=== PATIENT | male | born 1960 | race Caucasian/White ===

== ENCOUNTER 2017-04-01 03:30 | Inpatient (IN) | payer MEDICAID ==
[~2017-04-01] VITALS: Ht 177.8 cm; Wt 53.5 kg
[~2017-04-01 03:30] MED LIST: ADVAI100I PO; ALBU0.086 INH; LEVE750T8 PO; SPIRCAP INH; VENTAER INH; [UNRECOGNIZED DRUG - OTHER]
[2017-04-01 05:59] VITALS: BP 132/63; PULSE 68; RESP 18; TEMP 97.9
[2017-04-01] MEDS ORDERED: MAGNESIUM HYDROXIDE SUSP 30 ML CUP PO PRN (06:00)
[2017-04-01] MEDS ORDERED: LORazepam 2 MG/ML VIAL IM PRN (06:00)
[2017-04-01] MEDS ORDERED: ACETAMINOPHEN 325 MG TAB PO PRN (06:00)
[2017-04-01] MEDS ORDERED: ALUMINUM/MAGNESIUM/SIMETH 30 ML CUP PO PRN (06:00)
[2017-04-01] MEDS: LORazepam 1 MG TAB PO PRN ×3 (06:16→17:16)
[2017-04-01 06:30] VITALS: BP 132/63; PULSE 68; RESP 17; TEMP 97.9; O2SAT 98
[2017-04-01] MEDS: NICOTINE 21 MG/24 HR PATCH T-DERMAL SCH (09:00)
--- NOTE | 2017-04-01 13:59 | PD.CONS ---
HPI Service [facility] ([place], [place])ists Consult Requested By Dr. Mcrae Reason for Consult Medical management Primary Care Physician Non-Staff Diagnoses: History of Present Illness The patient is a 57-year-old male with a past medical history of epilepsy who is presenting to the hospital as a transfer for suicidal ideation. The patient said that he was taken to an outside hospital after having a seizure. He was about to be discharged and stated that he wanted to remain in the hospital for further treatment. He was told that was not an option so he said that he wanted to hurt himself. He was transferred to the psychiatry unit here at that point. The patient says that he said the wrong thing and is not suicidal. He said that he takes Keppra daily. His last seizure was about 6 months ago. He says generally his body stiffens up when he has a seizure. He says bright lights seem to trigger the seizures. He also complains of COPD. He says he has yellow mucus production. He does endorse chills. He is hoping to be restarted on his home COPD medications. Review of Systems Except as stated in HPI: all other systems reviewed are Neg Past Family Social History Allergies: Coded Allergies: No Known Allergies (Unverified , 04/11/16) Past Medical History Epilepsy COPD Chronic right knee pain Past Surgical History Right knee surgery Active Ordered Medications Current Medications Medications (Trade) Dose Ordered Sig/Christiana Route Start Time Stop Time Status Last Admin (Ativan) 1 mg Q6H PRN PO 04/01/17 06:00 04/01/17 11:42 (Ativan Inj) 1 mg Q6H PRN IM 04/01/17 06:00 (Tylenol) 650 mg Q4H PRN PO 04/01/17 06:00 (Milk Of Magnesia Liq) 30 ml DAILY PRN PO 04/01/17 06:00 (Mag-Al Plus Susp Liq) 30 ml Q6H PRN PO 04/01/17 06:00 (Habitrol 21 Mg Patch.24 Hr) 1 patch DAILY T-DERMAL 04/01/17 09:00 04/01/17 09:00 Miscellaneous Information 1 HS T-DERMAL 04/01/17 21:00 (Keppra) 750 mg Q12HR PO 04/01/17 14:00 UNV (Symbicort 160-4.5 Inh) 1 puff Q12HR INH 04/01/17 14:00 UNV (Duoneb Neb) 1 ampule Q2HR NEB PRN NEB 04/01/17 14:00 UNV (Deltasone) 20 mg DAILY PO 04/01/17 14:00 04/03/17 09:01 UNV Family History The pt denies pertinent family history Social History The pt smokes 1/2 to 1 pack daily. He denies alcohol or drugs. He is homeless. Physical Exam Vital Signs Vital Signs Date Time Temp Pulse Resp B/P (MAP) Pulse Ox O2 Delivery O2 Flow Rate FiO2 04/01/17 06:30 97.9 68 17 132/63 (86) 98 04/01/17 05:59 97.9 68 18 132/63 (86) Physical Exam GENERAL: This is a well-nourished, well-developed patient, in no apparent distress. SKIN: No rashes, ecchymoses or lesions. Cool and dry. HEAD: Atraumatic. Normocephalic. No temporal or scalp tenderness. EYES: Pupils equal round and reactive. Extraocular motions intact. No scleral icterus. No injection or drainage. ENT: Nose without bleeding, purulent drainage or septal hematoma. Throat without erythema, tonsillar hypertrophy or exudate. Uvula midline. Airway patent. NECK: Trachea midline. No JVD or lymphadenopathy. Supple, nontender, no meningeal signs. CARDIOVASCULAR: Regular rate and rhythm without murmurs, gallops, or rubs. RESPIRATORY: Decreased air movement. GASTROINTESTINAL: Abdomen soft, non-tender, nondistended. No hepato-splenomegaly , or palpable masses. No guarding. MUSCULOSKELETAL: Extremities without clubbing, cyanosis, or edema. No joint tenderness, effusion, or edema noted. NEUROLOGICAL: Awake and alert. Cranial nerves II through XII intact. Motor and sensory grossly within normal limits. Five out of 5 muscle strength in all muscle groups. Normal speech. PSYCH: Mood and affect appropriate. Laboratory Laboratory Tests Test 04/01/17 10:59 Ethyl Alcohol Level LESS THAN 3 Assessment and Plan Assessment and Plan Suicidal ideation The pt said that he accidentally said the wrong thing. He said he is not suicidal. - management per psychiatry. Epilepsy The pt is on Keppra daily as an outpt, though he should be getting 750 mg BID. - continue Keppra. - seizure precautions. COPD Pt endorses yellow mucous production. Poor air entry. - CXR pending. - continue Symbicort (on Advair at home). - incentive spirometry. - oxygen and nebs as needed. - prednisone. Chronic right knee pain He says he is on Percocet as an outpt. - ibuprofen as needed. PPx: Ambulation Discussed Condition With Pt, nurse Kavon Beck DO Apr 01, 2017 13:59
[2017-04-01] MEDS ORDERED: RESP: ALBUTEROL 2.5 MG/IPRATROPIUM 0.5 MG NEB (PRN) NEB (14:00)
[2017-04-01] MEDS: predniSONE 20 MG TAB PO SCH (15:00)
[2017-04-01] MEDS: levETIRAcetam 250 MG TAB PO SCH ×2 (15:00→21:29)
[2017-04-01] MEDS: BUDESONIDE-FORMOTEROL 160/4.5 MCG INHALER INH SCH ×2 (15:00→21:29)
[2017-04-01 16:18] VITALS: BP 120/74; PULSE 83; RESP 18; TEMP 98.7; O2SAT 96
--- NOTE | 2017-04-01 17:12 | HHI.HP ---
Provisional Diagnosis Admission Date Apr 01, 2017 at 03:30 [place]. Adjustment disorder with mixed disturbance of emotion and conduct. Certification of Person's Competence To Provide Express and Informed Consent I have personally examined Musa Valero , a person being served at [facility] on, Apr 01, 2017 17:10. Express and informed consent means consent voluntarily given in writing, by a competent person, after sufficient explanation and disclosure of the subject matter involved to enable the person to make a knowing and willful decision without any element of force, fraud, deceit, duress, or other form of constraint or coercion. This person is 18 years of age or older, is not now known to be incompetent to consent to treatment with a guardian advocate, and does not have a health care surrogate or proxy currently making medical treatment decisions. I have found this person to be one of the following: [x] Competent to provide express and informed consent, as defined above, for voluntary admission to this facility and is competent to provide express and informed consent for treatment. He/she has the consistent capacity to make well reasoned, willful, and knowing decisions concerning his or her medical or mental health treatment. The person fully and consistently understands the purpose of the admission for examination/placement and is fully capable of personally exercising all rights assured under [place] Incompetent to provide express and informed consent to voluntary admission, and this is incompetent to provide express and informed consent to treatment. The person must be transferred to involuntary status and a petition for a guardian advocate filed with the Circuit Court. [] Refusing to provide express and informed consent to voluntary admission but is competent to provide express and informed consent for treatment. The person must be discharged or transferred to involuntary status. Form shall be completed within 24 hours of a person's arrival at the receiving facility and filed in the clinical record of each person: 1. Admitted on a voluntary basis 2. Permitted to provide express and informed consent to his/her own treatment 3. Allowed to transfer from involuntary to voluntary status 4. Prior to permitting a person to consent to his or her own treatment after having been previously found incompetent to consent to treatment. History of Present Illness Capacity: Has Capacity HPI Patient admits to this physician that he told outside emergency department physician he was suicidal so they would not kick him out. He denies being suicidal at this time and is in fact chuckling and laughing. Patient requesting his Percocet and his Xanax. Review of Systems Except as stated in HPI: all other systems reviewed are Neg Musculoskeletal: COMPLAINS OF: Joint pain, Back pain, Neck pain Past Psych History Psychological trauma history Denied Violence risk - others (6 mos) Minimal Violence risk - self (6 mos) Minimal Substance Abuse History Drugs/Alcohol past 12 months Significant use of Percocet and Xanax. Past Family Social History Coded Allergies: No Known Allergies (Unverified , 04/11/16) Active Scripts Albuterol Sulfate (Ventolin Hfa) 18 Gm Aero, 2 PUFF INH Q4-6H Y for wheezing, # 3 BOX * SHAKE WELL BEFORE USE * Prov:Grady Carr MD 03/23/16 Albuterol Sulfate (Proventil Ud 0.083% (2.5 Mg/3 Ml)) 2.5 Mg/3 Ml Inha, 2.5 MG INH Q4HR Y for WHEEZING, #25 BOX Prov:Singh Bauer MD 02/24/16 Reported Medications Levetiracetam (Keppra) 750 Mg Tab, 750 MG PO Q12, TAB 04/11/16 [antise] No Conflict Check 02/24/16 Tiotropium [place] Monohydrate (Spiriva Handihaler) 18 Mcg Cap, 1 PUFF INH DAILY , #5 CAP DO NOT SWALLOW CAPSULES 02/16/16 Fluticasone/Salmeterol 100 mcg/50 mcg (Advair Diskus 100/50) Fluticasone/ Salmeterol 100/50 Inh, 1 PUFF PO BID, INHALER 02/16/16 Current Medications Medications (Trade) Dose Ordered Sig/Christiana Route Start Time Stop Time Status Last Admin (Ativan) 1 mg Q6H PRN PO 04/01/17 06:00 04/01/17 11:42 (Ativan Inj) 1 mg Q6H PRN IM 04/01/17 06:00 (Tylenol) 650 mg Q4H PRN PO 04/01/17 06:00 (Milk Of Magnesia Liq) 30 ml DAILY PRN PO 04/01/17 06:00 (Mag-Al Plus Susp Liq) 30 ml Q6H PRN PO 04/01/17 06:00 (Habitrol 21 Mg Patch.24 Hr) 1 patch DAILY T-DERMAL 04/01/17 09:00 04/01/17 09:00 Miscellaneous Information 1 HS T-DERMAL 04/01/17 21:00 (Keppra) 750 mg Q12HR PO 04/01/17 15:00 (Symbicort 160-4.5 Inh) 1 puff Q12HR INH 04/01/17 15:00 (Duoneb Neb) 1 ampule Q2HR NEB PRN NEB 04/01/17 14:00 (Deltasone) 20 mg DAILY PO 04/01/17 15:00 04/03/17 09:01 Family History Denied Social History Unemployed. Has disability. Patient's Strengths (min. 2) Verbal and has access to healthcare. Physical Exam GENERAL: SKIN: Warm and dry. HEAD: Normocephalic. EYES: No scleral icterus. No injection or drainage. NECK: Supple, trachea midline. No JVD or lymphadenopathy. CARDIOVASCULAR: Regular rate and rhythm without murmurs, gallops, or rubs. RESPIRATORY: Breath sounds equal bilaterally. No accessory muscle use. GASTROINTESTINAL: Abdomen soft, non-tender, nondistended. MUSCULOSKELETAL: No cyanosis, or edema. BACK: Nontender without obvious deformity. No CVA tenderness. Vital Signs Vital Signs Date Time Temp Pulse Resp B/P (MAP) Pulse Ox O2 Delivery O2 Flow Rate FiO2 04/01/17 16:18 98.7 83 18 120/74 (89) 96 Lab Results Test 04/01/17 10:59 Ethyl Alcohol Level LESS THAN 3 MG/DL Mental Status Examination Speech: Unremarkable Orientation: x3 Memory: Unremarkable Thought Process: Organized, Goal Directed Thought Content: Unremarkable Hallucination Type: None Attention and Concentration: Good Suicidal Ideation: No Previous Suicide Attempts: No Homicidal Ideation: No Previous Homicide Attempts: No Insight: Fair Judgment: WNL Affect: Good Mood: Appropriate Motor Activity: Normal gait Assessment & Plan Problem List: (1) Malingering ICD Codes: Z76.5 - Malingerer [conscious simulation] (2) Adjustment disorder with mixed disturbance of emotions and conduct ICD Codes: F43.25 - Adjustment disorder with mixed disturbance of emotions and conduct Assessment & Plan Estimated LOS: days will place patient on Xanax so he does not withdraw. Will ask physical medicine to determine his pain meds. John Mcrae MD Apr 01, 2017 17:12
--- NOTE | 2017-04-01 17:21 | RADRPT ---
EXAM DATE/TIME: 04/01/2017 16:47 [facility] COMPARISON: CHEST SINGLE AP, March 23, 2016, 21:21. INDICATIONS : Short of breath. MEDICAL HISTORY : Chronic obstructive pulmonary disease. SURGICAL HISTORY : None. ENCOUNTER: Subsequent ACUITY: 1 month PAIN SCORE: 0/10 LOCATION: Bilateral chest FINDINGS: Emphysematous changes are noted bilaterally. The heart and mediastinal structures are normal. The p ulmonary vascular pattern is normal. The lungs are clear. CONCLUSION: 1. Emphysematous changes. 2. No acute focal pulmonary infiltrate or pulmonary vascular congestion. Beck Mathis MD on April 01, 2017 at 16:56 Board Certified Radiologist. This report was verified electronically.
[2017-04-01] MEDS ORDERED: REMOVE OLD NICOTINE PATCH T-DERMAL SCH (21:00)
[2017-04-01] MEDS: ALPRAZolam 1 MG TAB PO SCH (21:29)
[2017-04-02] MEDS: LORazepam 1 MG TAB PO PRN ×2 (02:13→11:52)
[2017-04-02 06:19] VITALS: BP 99/55; PULSE 82; RESP 18; TEMP 98.3; O2SAT 98
[2017-04-02 08:31] LABS: HEMATOCRIT 43.2 % (39.0-51.0); MEAN CORPUSCULAR HEMOGLOBIN 31.7 PG (27.0-34.0); PLATELET COUNT 288 TH/MM3 (150-450); WHITE BLOOD COUNT 12.8 TH/MM3 (4.0-11.0)
[2017-04-02] MEDS: ALPRAZolam 1 MG TAB PO SCH (08:35)
[2017-04-02] MEDS: levETIRAcetam 250 MG TAB PO SCH (08:35)
[2017-04-02] MEDS: predniSONE 20 MG TAB PO SCH (08:35)
[2017-04-02] MEDS: NICOTINE 21 MG/24 HR PATCH T-DERMAL SCH (08:36)
[2017-04-02] MEDS: BUDESONIDE-FORMOTEROL 160/4.5 MCG INHALER INH SCH (08:36)
[2017-04-02 08:37] LABS: BICARBONATE 29.2 MEQ/L (21.0-32.0); POTASSIUM 4.1 MEQ/L (3.5-5.1)
--- NOTE | 2017-04-02 11:46 | HHI.DS ---
Psychiatry Discharge Summary Inpatient Psychiatric care?: Yes Advance Directive: No Reason Not Provided: Due to Patient Condition Mental Health AdvanceDirective: No Health Care Proxy: No Admission Admission Date Apr 01, 2017 at 03:30 Admission Diagnosis: (1) Adjustment disorder with mixed disturbance of emotions and conduct ICD Code: F43.25 - Adjustment disorder with mixed disturbance of emotions and conduct Brief History Patient admits to this physician that he told outside emergency department physician he was suicidal so they would not kick him out. He denies being suicidal at this time and is in fact chuckling and laughing. Patient requesting his Percocet and his Xanax. Tobacco Use In Past 30 Days: 5 or More Cigarettes/Day Alcohol Use: Never Hospital Course Patient was admitted to a locked, inpatient psychiatric unit. General medical consultation was obtained. Appropriate precautions were in place throughout patient's hospital stay. Patient was seen and examined on the unit by psychiatry and also visited by counselor. There was no evidence of any suicidality or homicidality on the unit. Patient remained in good behavioral control. Charting indicates that the patient is sleeping and eating well. On the day of discharge: Patient seen and examined with nurse. Chart reviewed. Case discussed with nursing staff. On my examination today, the patient says that his interaction with the outside hospital ED provider was more of a misunderstanding. He continues to deny any suicidal or homicidal ideation, intent or plan on direct questioning and contracts for safety. No depressive or hypomanic/manic symptoms elicited. No psychotic symptoms. Patient denies a history of psychiatric illness besides anxiety for which he takes benzodiazepines. He denies a history of suicide attempts. He denies a family history of serious mental illness or suicide. He was with a friend and denies access to guns or firearms. Somewhat medication seeking for benzodiazepines on discharge, but I have reviewed the patient's E-FORCSE report, and I note that the patient was given a 30-day supply of his Klonopin by Dr. House on . No physical complaints. Appears to be breathing easily. Weighing the acute, chronic, and protective factors and based on the available evidence, I supervisor rod placing to a reasonable degree of medical certainty that the patient is at low imminent risk of harm to self or others from mental illness as defined under the [place] act and his level of function is adequate for outpatient care. Patient has maximized benefit from this inpatient psychiatric hospital stay and is to be discharged today once cleared by the hospitalist with psychiatric follow-up as arranged by counselor. Patient is also to follow-up with primary care. I have counseled the patient regarding warning signs for need to return to the psychiatric emergency room as part of a general safety plan. Results Blood Pressure 99 / 55 Vital Signs Date Time Temp Pulse Resp B/P (MAP) Pulse Ox O2 Delivery O2 Flow Rate FiO2 04/02/17 06:19 98.3 82 18 99/55 (70) 98 Laboratory Tests Test 04/01/17 10:59 04/02/17 07:03 White Blood Count 12.8 TH/MM3 (4.0-11.0) Blood Urea Nitrogen 21 MG/DL (7-18) Calcium Level 8.3 MG/DL (8.5-10.1) Summary of Procedures None done Imaging Last Impressions Chest X-Ray 04/01/17 0000 Signed Impressions: Service Date/Time: Saturday, April 01, 2017 16:47 - CONCLUSION: 1. Emphysematous changes. 2. No acute focal pulmonary infiltrate or pulmonary vascular congestion. Beck Mathis MD Pending results at discharge: No Medications # of Antipsychotic meds at D/C: 0 Approp Antipsych med options 1 - Minimum of three failed multiple trials of monotherapy. 2 - Documented plan to taper to monotherapy due to previous use of multiple meds OR cross-taper in progress at D/C. 3 - Documentation of augmentation of Clozapine. 4 - Justification other than those listed in allowable values 1-3, document here : Discharge Discharge Date: Apr 02, 2017 Discharge Diagnosis: (1) Adjustment disorder with mixed disturbance of emotions and conduct Diagnosis: Principal (resolved) ICD Code: F43.25 - Adjustment disorder with mixed disturbance of emotions and conduct Status: Acute Mental Status Exam at Disch Patient is casually dressed. Patient is fairly well groomed and maintaining basic hygiene. Patient is awake and alert and oriented person and hospital at least. No evidence of delirium. No motor abnormalities appreciated. No signs of withdrawal noted. Speech is within normal limits for rate, tone, volume. Language and fund of knowledge average. Focus and concentration intact. Memory grossly intact on clinical exam. Mood is fair. Affect is full and reactive. Thought process linear. No delusions elicited. Denies audiovisual hallucinations and does not appear internally stimulated. Denies suicidal or homicidal ideation, intent, or plan and contracts for safety. Insight and judgment seem fair at best. Pt Condition on Discharge: Stable Discharge Disposition: Discharge Home Discharge Instructions Diet Instructions: As Tolerated, No Restrictions Activities you can perform: Weight Bearing as [place] Scheduled Appointment: as per counselor's notes New Orders: CBC WITH DIFF - 1 Week New Medications: Prednisone (Prednisone) 20 Mg Tab 20 MG PO ONCE for Cough, #1 TAB 0 Refills Prednisone (Prednisone) 20 Mg Tab 20 MG PO DAILY for Cough for 1 Day, #1 TAB Continued Medications: Albuterol Sulfate (Ventolin Hfa) 18 Gm Aero 2 PUFF INH Q4-6H PRN for wheezing, #3 BOX * SHAKE WELL BEFORE USE * Fluticasone/Salmeterol 100 mcg/50 mcg (Advair Diskus 100/50) Fluticasone/ Salmeterol 100/50 Inh 1 PUFF PO BID, INHALER Levetiracetam (Keppra) 750 Mg Tab 750 MG PO Q12, TAB Tiotropium [place] Monohydrate (Spiriva Handihaler) 18 Mcg Cap 1 PUFF INH DAILY, #5 CAP DO NOT SWALLOW CAPSULES Discontinued Medications: Albuterol Sulfate (Proventil Ud 0.083% (2.5 Mg/3 Ml)) 2.5 Mg/3 Ml Inha 2.5 MG INH Q4HR PRN for WHEEZING, #25 BOX [antise] () Discharge Time <= 30 minutes Discharge/Advance Care Plan Health Problems: (1) Malingering (2) Adjustment disorder with mixed disturbance of emotions and conduct Goals to promote your health * To prevent worsening of your condition and complications * To maintain your health at the optimal level Directions to meet your goals Take your medications as prescribed Follow your dietary instruction Follow activity as directed Keep your appointments as scheduled Take your immunizations and boosters as scheduled If your symptoms worsen call your PCP, if no PCP go to Urgent Care Center or Emergency Room For 26/02 questions related to your inpatient stay or results of tests pending at discharge, please contact Dr. Juan Carlos Peña at Smoking is Dangerous to Your Health. Avoid second hand smoking Juan Carlos Peña MD Apr 02, 2017 11:46
[2017-04-02] MEDS ORDERED: PRED20 PO ×2 (12:34→12:35)
== END 2017-04-02 13:30 | disposition home or self-care (01) | DRG 882 ==
LOC: H260 03:30
PROVIDERS: ADMIT Psychiatry & Neurology Psychiatry; ATTEND Psychiatry & Neurology Psychiatry
DX: F43.25 Adjustment disorder with mixed disturbance of emotions and conduct (principal); G40.909 Epilepsy, unspecified, not intractable, without status epilepticus; J44.9 Chronic obstructive pulmonary disease, unspecified; G89.29 Other chronic pain; M25.561 Pain in right knee; F17.210 Nicotine dependence, cigarettes, uncomplicated; Z59.0 Homelessness
CPT/HCPCS: 71010; 80048; 80307; 83735; 85027; 94150; J7512

== ENCOUNTER 2017-10-08 16:28 | Inpatient (IN) | payer MEDICAID ==
[~2017-10-08] VITALS: Ht 170.2 cm; Wt 54.9 kg
[~2017-10-08 16:28] MED LIST changes: -ALBU0.086 INH; +PRED20 PO; -[UNRECOGNIZED DRUG - OTHER]
[2017-10-08 16:46] VITALS: BP 140/77; PULSE 120; RESP 26; TEMP 99.1; O2SAT 92
[2017-10-08 17:07] VITALS: BP 135/72; PULSE 115; PULSE 117; RESP 30; O2SAT 91
[2017-10-08] MEDS ORDERED: VENTAER INH (17:14)
[2017-10-08] MEDS ORDERED: KLON2TAB PO (17:14)
[2017-10-08] MEDS ORDERED: SPIRCAP INH (17:14)
[2017-10-08] MEDS ORDERED: PERC10TA27 PO (17:14)
[2017-10-08] MEDS ORDERED: ADVA250A INH (17:14)
[2017-10-08] MEDS ORDERED: methylPREDNISolone SOD SUCC 125 MG/2 ML VIAL IV PUSH ONE (17:15)
[2017-10-08] MEDS ORDERED: SODIUM CHLORIDE 0.9% FLUSH 10 ML FLUSH IVF PRN (17:15)
[2017-10-08] MEDS: RESP: ALBUTEROL 2.5 MG/IPRATROPIUM 0.5 MG NEB (SCH) INH ×3 (17:17→17:45)
--- NOTE | 2017-10-08 17:56 | RADRPT ---
EXAM DATE/TIME: 10/08/2017 17:36 [facility] COMPARISON: CHEST SINGLE AP, April 01, 2017, 16:47. INDICATIONS : Short of breath. MEDICAL HISTORY : Chronic obstructive pulmonary disease. SURGICAL HISTORY : None. ENCOUNTER: Initial ACUITY: 1 day PAIN SCORE: 0/10 LOCATION: Bilateral chest FINDINGS: A single view of the chest demonstrates the lungs to be symmetrically aerated without evidence of mas s, infiltrate or effusion. The cardiomediastinal contours are unremarkable. Osseous structures are intact. CONCLUSION: No acute disease. Peterson Denis Jr., MD on October 08, 2017 at 17:55 Board Certified Radiologist. This report was verified electronically.
[2017-10-08 18:04] VITALS: BP 128/71; PULSE 121; RESP 24; O2SAT 95
[2017-10-08 19:15] LABS: AUTOMATED NEUTROPHIL # 11.9 TH/MM3 (1.8-7.7); BASOPHIL % 0.2 % (0.0-2.0); EOSINOPHIL % 0.1 % (0.0-4.0); HEMATOCRIT 36.5 % (39.0-51.0); HEMOGLOBIN 12.2 GM/DL (13.0-17.0); LYMPH % 11.7 % (9.0-44.0); LYMPHOCYTE # 1.9 TH/MM3 (1.0-4.8); MEAN CELL VOLUME 92.8 FL (80.0-100.0); MEAN CORPUSCULAR HGB CONC 33.5 % (32.0-36.0); MEAN PLATELET VOLUME 8.6 FL (7.0-11.0); MONO % 13.2 % (0.0-8.0); MONOCYTE # 2.1 TH/MM3 (0-0.9); NEUT % 74.8 % (16.0-70.0); PLATELET COUNT 358 TH/MM3 (150-450); RED BLOOD COUNT 3.94 MIL/MM3 (4.50-5.90); WHITE BLOOD COUNT 15.9 TH/MM3 (4.0-11.0)
[2017-10-08 19:26] LABS: PROTHROMBIN TIME - PATIENT 10.3 SEC (9.8-11.6)
[2017-10-08 19:56] LABS: ALBUMIN 3.4 GM/DL (3.4-5.0); AST (GOT) 65 U/L (15-37); BICARBONATE 32.4 MEQ/L (21.0-32.0); BLOOD UREA NITROGEN 27 MG/DL (7-18); CALCIUM 8.7 MG/DL (8.5-10.1); CHLORIDE 101 MEQ/L (98-107); CREATININE 1.12 MG/DL (0.60-1.30); GLOMERULAR FILTRATION RATE 68 ML/MIN (>89); GLUCOSE,RANDOM 108 MG/DL (74-106); MAGNESIUM 1.9 MG/DL (1.5-2.5); SODIUM (NA) 140 MEQ/L (136-145)
[2017-10-08 19:58] LABS: ALT (GPT) 134 U/L (12-78)
[2017-10-08 20:01] LABS: ALKALINE PHOSPHATASE 98 U/L (45-117); TOTAL BILIRUBIN ADULT 0.4 MG/DL (0.2-1.0); TOTAL PROTEIN 7.8 GM/DL (6.4-8.2); TROPONIN I 0.18 NG/ML (0.02-0.05)
[2017-10-08] MEDS ORDERED: ASPIRIN 81 MG CHEW TAB CHEW ONE (20:15)
[2017-10-08] MEDS ORDERED: HEPARIN SODIUM - IV 10,000 UNITS/10 ML VIAL IV ONE (20:15)
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
[2017-10-08] MEDS ORDERED: IOHEXOL 350 MG/ML 10 ML VIAL (for RAD DIAG) IVCONTRAST ONE (20:42)
[2017-10-08] MEDS ORDERED: RESP: ALBUTEROL 2.5 MG/3 ML NEB (PRN) INH (20:45)
[2017-10-08] MEDS: HEPARIN SODIUM - SQ 10,000 UNITS/ML VIAL SQ SCH (20:45)
[2017-10-08] MEDS ORDERED: SODIUM CHLORIDE 0.9% FLUSH 10 ML FLUSH IV FLUSH PRN (20:45)
[2017-10-08] MEDS ORDERED: HEPARIN-D5W 25,000 U/250 ML 250 ML IV PRN (21:00)
[2017-10-08] MEDS: SODIUM CHLORIDE 0.9% FLUSH 10 ML FLUSH IV FLUSH SCH (21:00)
--- NOTE | 2017-10-08 21:17 | RADRPT ---
EXAM DATE/TIME: 10/08/2017 20:37 [facility] COMPARISON: No previous studies available for comparison. INDICATIONS : Trauma; fall. RADIATION DOSE: 49.27 CTDIvol (mGy) MEDICAL HISTORY : Seizures. Chronic obstructive pulmonary disease. Hepatitis C. SURGICAL HISTORY : None. ENCOUNTER: Initial ACUITY: 1 day PAIN SCALE: 0/10 LOCATION: cranial TECHNIQUE: Multiple contiguous axial images were obtained of the head. Using automated exposure control and adj ustment of the mA and/or kV according to patient size, radiation dose was kept as low as reasonably a chievable to obtain optimal diagnostic quality images. DICOM format image data is available electro nically for review and comparison. FINDINGS: Examination was performed using tabletop technique. There is some mild motion degradation on several of the low convexity images. CEREBRUM: The ventricles are normal for age. No evidence of midline shift, mass lesion, hemorrhage or acute in farction. No extra-axial fluid collections are seen. POSTERIOR FOSSA: The cerebellum and brainstem are intact. The 4th ventricle is midline. The cerebellopontine angle i s unremarkable. EXTRACRANIAL: The visualized portion of the orbits is intact. SKULL: The calvaria is intact. No evidence of skull fracture. CONCLUSION: 1. No acute findings in the brain. Peterson Mckeon MD on October 08, 2017 at 21:14 Board Certified Radiologist. This report was verified electronically.
--- NOTE | 2017-10-08 21:20 | RADRPT ---
EXAM DATE/TIME: 10/08/2017 20:39 [facility] COMPARISON: CHEST SINGLE AP, October 08, 2017, 17:36. INDICATIONS : Shortness of breath; rule out pulmonary embolus. IV CONTRAST: 75 cc Omnipaque 350 (iohexol) IV RADIATION DOSE: 8.61 CTDIvol (mGy) MEDICAL HISTORY : Seizures. Chronic obstructive pulmonary disease. Hepatitis C. SURGICAL HISTORY : None. ENCOUNTER: Initial ACUITY: 1 day PAIN SCALE: 0/10 LOCATION: chest TECHNIQUE: Volumetric scanning of the chest was performed using a pulmonary embolism protocol MIP images were re constructed. Using automated exposure control and adjustment of the mA and/or kV according to patien t size, radiation dose was kept as low as reasonably achievable to obtain optimal diagnostic quality images. DICOM format image data is available electronically for review and comparison. Follow-up recommendations for detected pulmonary nodules are based at a minimum on nodule size and pa tient risk factors according to Fleischner Society Guidelines. FINDINGS: PULMONARY ARTERIES: No filling defects are seen in the pulmonary arteries through the segmental level. LUNGS: Severe centrilobular emphysema in the upper and lower lobes. There is chronic scarring in the mdm developer ior left apex and patchy areas of consolidation or atelectasis in the costophrenic angles bilaterally . PLEURAE: There is no pleural thickening or pleural effusion. MEDIASTINUM: There is good visualization of the great vessels of the middle mediastinum. No evidence of mediastin al or hilar adenopathy/mass. CONCLUSION: 1. Negative for pulmonary embolism. 2. Chronic lung disease with severe centrilobular emphysema, left posterior apical probable scarring, and bilateral costophrenic angle infiltrates or atelectasis. The Peterson Mckeon MD on October 08, 2017 at 21:16 Board Certified Radiologist. This report was verified electronically.
[2017-10-08 22:13] LABS: BILIRUBIN, URINE NEG (NEG); BLOOD, URINE NEG (NEG); GLUCOSE,URINE NEG (NEG); KETONE, URINE NEG (NEG); MUCUS URINE FEW /lpf (OCC); NITRITE,URINE NEG (NEG); URINE COLOR LIGHT-YELLOW (YELLW/STRAW); URINE LEUKOCYTE ESTERASE NEG (NEG)
[2017-10-08] MEDS: LEVOFLOXACIN 750 MG PREMIX INJ 150 ML IV SCH (23:21)
--- NOTE | 2017-10-08 23:47 | HHI.HP ---
HPI Service [facility] Primary Care Physician No Primary Care Physician Admission Diagnosis NSTEMI, COPD exacerbation Diagnoses: Travel History International Travel<30 Days: No Contact w/Intl Traveler <30 Da: No Traveled to Known Affected Are: No History of Present Illness 57-year-old male with a past medical history significant for COPD, chronic pain and anxiety presents the emergency department complaining of 18 hours of shortness of breath. The patient reports that he is intermittently on 4 L of oxygen by nasal cannula at home. He reports for the past 2 days he has been without his oxygen. He also endorses chest pain that has been going on for the previous day which she describes as sharp and substernal. He also endorses intermittent bouts of diaphoresis. He complains of a increasing nonproductive cough. He denies any fever/chills. No nausea/vomiting/diarrhea. No weakness/ dizziness. No lateralizing signs/symptoms. Review of Systems Except as stated in HPI: all other systems reviewed are Neg Past Family Social History Past Medical History COPD Chronic pain Anxiety Past Surgical History Right knee Left humerus Reported Medications Reported Meds & Active Scripts Active Reported Ventolin Hfa 18 GM Inh (Albuterol Sulfate) 90 Mcg/Act Aer 1 Puff INH Q4H PRN Klonopin (Clonazepam) 2 Mg Tab 2 Mg PO BID Percocet (Oxycodone-Acetaminophen) 10-325 mg Tab 1 Tab PO Q4H PRN Advair Diskus Inh (Fluticasone-Salmeterol Inh) 250-50 Mcg/Blist Aer 1 Puff INH BID Rinse mouth after use. Spiriva Handihaler (Tiotropium Inh) 18 Mcg Cap 18 Mcg INH DAILY 1 capsule = 18 mcg Allergies: Coded Allergies: No Known Allergies (Unverified , 04/11/16) Family History Negative for CAD/DM Social History Smokes approximately 5 cigarettes per day. Denies alcohol and illicit drugs. Physical Exam Vital Signs Vital Signs Date Time Temp Pulse Resp B/P (MAP) Pulse Ox O2 Delivery O2 Flow Rate FiO2 10/08/17 18:04 121 24 128/71 (90) 95 Nasal Cannula 6.00 10/08/17 17:07 91 Nasal Cannula 6.00 10/08/17 17:07 91 Nasal Cannula 6.00 10/08/17 17:07 115 30 135/72 (93) 91 Nasal Cannula 6.00 10/08/17 17:07 117 30 135/72 (93) 91 Nasal Cannula 6.00 10/08/17 16:46 99.1 120 26 140/77 (98) 92 Physical Exam GENERAL: Thin, male sitting up in bed SKIN: No rashes, ecchymoses or lesions. Cool and dry. HEAD: Atraumatic. Normocephalic. No temporal or scalp tenderness. EYES: Pupils equal round and reactive. Extraocular motions intact. No scleral icterus. No injection or drainage. ENT: Nose without bleeding, purulent drainage or septal hematoma. Throat without erythema, tonsillar hypertrophy or exudate. Uvula midline. Airway patent. NECK: Trachea midline. No JVD or lymphadenopathy. Supple, nontender, no meningeal signs. CARDIOVASCULAR: Tachycardic. Regular rhythm without murmurs, gallops, or rubs. RESPIRATORY: Poor air movement. No wheezes/rales/rhonchi. GASTROINTESTINAL: Abdomen soft, non-tender, nondistended. No hepato-splenomegaly , or palpable masses. No guarding. MUSCULOSKELETAL: Extremities without clubbing, cyanosis, or edema. No joint tenderness, effusion, or edema noted. No calf tenderness. NEUROLOGICAL: Awake and alert. Cranial nerves II through XII intact. Motor and sensory grossly within normal limits. Normal speech. Laboratory Laboratory Tests Test 10/08/17 17:15 10/08/17 21:05 10/08/17 21:07 White Blood Count 15.9 Red Blood Count 3.94 Hemoglobin 12.2 Hematocrit 36.5 Mean Corpuscular Volume 92.8 Mean Corpuscular Hemoglobin 31.0 Mean Corpuscular Hemoglobin Concent 33.5 Red Cell Distribution Width 15.0 Platelet Count 358 Mean Platelet Volume 8.6 Neutrophils (%) (Auto) 74.8 Lymphocytes (%) (Auto) 11.7 Monocytes (%) (Auto) 13.2 Eosinophils (%) (Auto) 0.1 Basophils (%) (Auto) 0.2 Neutrophils # (Auto) 11.9 Lymphocytes # (Auto) 1.9 Monocytes # (Auto) 2.1 Eosinophils # (Auto) 0.0 Basophils # (Auto) 0.0 CBC Comment DIFF FINAL Differential Comment Prothrombin Time 10.3 Prothromb Time International Ratio 1.0 Activated Partial Thromboplast Time 22.8 Blood Urea Nitrogen 27 Creatinine 1.12 Random Glucose 108 Total Protein 7.8 Albumin 3.4 Calcium Level 8.7 Magnesium Level 1.9 Alkaline Phosphatase 98 Aspartate Amino Transf (AST/SGOT) 65 Alanine Aminotransferase (ALT/SGPT) 134 Total Bilirubin 0.4 Sodium Level 140 Potassium Level 3.6 Chloride Level 101 Carbon Dioxide Level 32.4 Anion Gap 7 Estimat Glomerular Filtration Rate 68 Total Creatine Kinase 333 Creatine Kinase MB 5.2 Creatine Kinase MB % 1.6 Troponin I 0.18 0.14 B-Type Natriuretic Peptide 152 Urine Color LIGHT-YELLOW Urine Turbidity CLEAR Urine pH 6.0 Urine Specific Gerald 1.010 Urine Protein NEG Urine Glucose (UA) NEG Urine Ketones NEG Urine Occult Blood NEG Urine Nitrite NEG Urine Bilirubin NEG Urine Urobilinogen LESS THAN 2.0 Urine Leukocyte Esterase NEG Urine WBC LESS THAN 1 Urine Mucus FEW Microscopic Urinalysis Comment CULT NOT INDICATED Result Diagram: 10/08/17 1715 10/08/17 1715 Caprini VTE Risk Assessment Caprini VTE Risk Assessment: No/Low Risk (score <= 1) Caprini Risk Assessment Model Point Value = 1 Point Value = 2 Point Value = 3 Point Value = 5 Age 41-60 Minor surgery BMI > 25 kg/m2 Swollen legs Varicose veins or History of unexplained or recurrent spontaneous Oral contraceptives or hormone replacement Sepsis (< 1 month) Serious lung disease, including pneumonia (< 1 month) Abnormal pulmonary function Acute myocardial infarction Congestive heart failure (< 1 month) History of inflammatory bowel disease Medical patient at bed rest Age 61-74 Arthroscopic surgery Major open surgery (> 45 min) Laparoscopic surgery (> 45 min) Malignancy Confined to bed (> 72 hours) Immobilizing plaster cast Central venous access Age >= 75 History of VTE Family history of VTE Factor V Leiden Prothrombin [id number] Lupus anticoagulant Anticardiolipin antibodies Elevated serum homocysteine Heparin-induced thrombocytopenia Other congenital or acquired thrombophilia Stroke (< 1 month) Elective arthroplasty Hip, pelvis, or leg fracture Acute spinal cord injury (< 1 month) Prophylaxis Regimen Total Risk Factor Score Risk Level Prophylaxis Regimen 0-1 Low Early ambulation 2 Moderate Order ONE of the following: *Sequential Compression Device (SCD) *Heparin 5000 units SQ BID 3-4 Higher Order ONE of the following medications: *Heparin 5000 units SQ TID *Enoxaparin/Lovenox 40 mg SQ daily (WT < 150 kg, CrCl > 30 mL/min) *Enoxaparin/Lovenox 30 mg SQ daily (WT < 150 kg, CrCl > 10-29 mL/min) *Enoxaparin/Lovenox 30 mg SQ BID (WT < 150 kg, CrCl > 30 mL/min) AND/OR *Sequential Compression Device (SCD) 5 or more Highest Order ONE of the following medications: *Heparin 5000 units SQ TID (Preferred with Epidurals) *Enoxaparin/Lovenox 40 mg SQ daily (WT < 150 kg, CrCl > 30 mL/min) *Enoxaparin/Lovenox 30 mg SQ daily (WT < 150 kg, CrCl > 10-29 mL/min) *Enoxaparin/Lovenox 30 mg SQ BID (WT < 150 kg, CrCl > 30 mL/min) AND *Sequential Compression Device (SCD) Assessment and Plan Assessment and Plan Assessment/plan: 1. NSTEMI Initial troponin elevated at 0.18 EKG showed sinus tachycardia without ST segment elevations or depressions, personally reviewed ACS rule out pending; serial troponins/EKGs Heparin bolus and drip Cardiology consulted, appreciate recommendations 2. COPD exacerbation/possible pneumonia DuoNeb's IV steroids Supplemental oxygen as needed Levaquin 3. Chronic pain/anxiety Continue home Percocet at reduced dose Continue home Klonopin at reduced dose FEN NPO NS at 100 cc/hr Electrolytes: monitor and replete prn Heparin ggt Physician Certification 2 Midnight Certification Type: Admission for Inpatient Services Order for Inpatient Services The services are ordered in accordance with Medicare regulations or non- Medicare payer requirements, as applicable. In the case of services not specified as inpatient-only, they are appropriately provided as inpatient services in accordance with the 2-midnight benchmark. Estimated LOS (days): 2 2 days is the estimated time the patient will need to remain in the hospital, assuming treatment plan goals are met and no additional complications. Post-Hospital Plan: Not yet determined Pilar Ceballos MD Oct 08, 2017 23:47
[2017-10-09] VITALS (9 sets, daily range): BP systolic 126–153; BP diastolic 67–85; PULSE 90–103; RESP 17–22; TEMP 96.4–97.9; O2SAT 90–97
[2017-10-09] MEDS: methylPREDNISolone SOD SUCC 125 MG/2 ML VIAL IV PUSH SCH ×4 (00:09→17:18)
[2017-10-09] MEDS: RESP: ALBUTEROL 2.5 MG/IPRATROPIUM 0.5 MG NEB (SCH) INH ×7 (00:12→23:53)
[2017-10-09] MEDS: SODIUM CHLOR 0.9% 1000 ML INJ 1,000 ML IV SCH ×2 (01:43→11:18)
[2017-10-09] MEDS ORDERED: HEPARIN SODIUM - IV 10,000 UNITS/10 ML VIAL IV PRN ×2 (02:15)
[2017-10-09 03:38] LABS: AUTOMATED NEUTROPHIL # 9.1 TH/MM3 (1.8-7.7); BASOPHIL % 0.1 % (0.0-2.0); EOSINOPHIL % 0.1 % (0.0-4.0); HEMATOCRIT 34.2 % (39.0-51.0); HEMOGLOBIN 11.5 GM/DL (13.0-17.0); LYMPH % 5.6 % (9.0-44.0); LYMPHOCYTE # 0.5 TH/MM3 (1.0-4.8); MEAN CORPUSCULAR HEMOGLOBIN 30.6 PG (27.0-34.0); MEAN CORPUSCULAR HGB CONC 33.7 % (32.0-36.0); MEAN PLATELET VOLUME 8.1 FL (7.0-11.0); MONOCYTE # 0.1 TH/MM3 (0-0.9); NEUT % 93.2 % (16.0-70.0); PLATELET COUNT 321 TH/MM3 (150-450); RED BLOOD COUNT 3.76 MIL/MM3 (4.50-5.90); RED CELL DISTRIBUTION WIDTH 14.9 % (11.6-17.2); WHITE BLOOD COUNT 9.7 TH/MM3 (4.0-11.0)
[2017-10-09 04:03] LABS: ALBUMIN 2.9 GM/DL (3.4-5.0); ALT (GPT) 113 U/L (12-78); AST (GOT) 49 U/L (15-37); BICARBONATE 31.6 MEQ/L (21.0-32.0); BLOOD UREA NITROGEN 18 MG/DL (7-18); CALCIUM 8.2 MG/DL (8.5-10.1); CHLORIDE 102 MEQ/L (98-107); CREATININE 0.84 MG/DL (0.60-1.30); GLOMERULAR FILTRATION RATE 94 ML/MIN (>89); GLUCOSE,RANDOM 119 MG/DL (74-106); SODIUM (NA) 138 MEQ/L (136-145)
[2017-10-09 04:06] LABS: ALKALINE PHOSPHATASE 86 U/L (45-117); TOTAL BILIRUBIN ADULT 0.3 MG/DL (0.2-1.0); TOTAL PROTEIN 7.1 GM/DL (6.4-8.2); TROPONIN I 0.09 NG/ML (0.02-0.05)
[2017-10-09 04:08] LABS: TROPONIN I 0.09 NG/ML (0.02-0.05)
[2017-10-09] MEDS: HEPARIN SODIUM - SQ 10,000 UNITS/ML VIAL SQ SCH ×3 (07:00→20:20)
[2017-10-09] MEDS: oxyCODONE/ACETAMINOPHEN 5 MG/325 MG TAB PO PRN ×4 (07:34→20:18)
[2017-10-09] MEDS: clonazePAM 1 MG TAB PO SCH ×2 (07:34→20:18)
[2017-10-09] MEDS: BUDESONIDE-FORMOTEROL 160/4.5 MCG INHALER INH SCH ×2 (08:14→20:20)
[2017-10-09] MEDS: SODIUM CHLORIDE 0.9% FLUSH 10 ML FLUSH IV FLUSH SCH ×2 (08:14→20:20)
[2017-10-09] MEDS: TIOTROPIUM BROMIDE 18 MCG INH INH SCH (08:14)
[2017-10-09] MEDS ORDERED: NICOTINE 21 MG/24 HR PATCH TD SCH (09:00)
--- NOTE | 2017-10-09 13:06 | HHI.PR ---
Subjective Remarks In bed, says he has back pain and he is taking Percocet and was not restarted. Patient is also telling me he is taking 2 mg clonazepam. He says his chest pain is better today and mostly is his back that hurts. He is less sob he is sattign well on 2L NC. No cough. fever or chills. No n/v/d/c. Objective Vitals Vital Signs Date Time Temp Pulse Resp B/P (MAP) Pulse Ox O2 Delivery O2 Flow Rate FiO2 10/09/17 10:11 96.4 95 20 134/80 (98) 92 10/09/17 08:34 16 10/09/17 07:49 95 Nasal Cannula 2.00 10/09/17 07:30 18 97 Nasal Cannula 2.00 10/09/17 07:30 97.8 95 17 127/69 (88) 97 Nasal Cannula 2.00 10/09/17 07:30 87 20 97 Nasal Cannula 2.00 10/09/17 07:30 97 Nasal Cannula 2.00 10/09/17 06:12 90 22 153/78 (103) 97 Nasal Cannula 5.00 10/09/17 00:37 102 20 126/67 (86) 96 Nasal Cannula 5.00 10/08/17 18:04 121 24 128/71 (90) 95 Nasal Cannula 6.00 10/08/17 17:07 91 Nasal Cannula 6.00 10/08/17 17:07 91 Nasal Cannula 6.00 10/08/17 17:07 115 30 135/72 (93) 91 Nasal Cannula 6.00 10/08/17 17:07 117 30 135/72 (93) 91 Nasal Cannula 6.00 10/08/17 16:46 99.1 120 26 140/77 (98) 92 I/O 10/08/17 10/08/17 10/08/17 10/09/17 10/09/17 10/09/17 07:00 15:00 23:00 07:00 15:00 23:00 Output Total 700 ml Balance -700 ml Output Urine Total 700 ml # Voids 1 # Bowel Movements 0 Result Diagram: 10/09/17 0310 10/09/17 0310 Imaging Last Impressions Chest X-Ray 10/08/17 1706 Signed Impressions: Service Date/Time: Sunday, October 08, 2017 17:36 - CONCLUSION: No acute disease. Peterson Denis Jr., MD CT Angiography 10/08/17 1706 Signed Impressions: Service Date/Time: Sunday, October 08, 2017 20:39 - CONCLUSION: 1. Negative for pulmonary embolism. 2. Chronic lung disease with severe centrilobular emphysema , left posterior apical probable scarring, and bilateral costophrenic angle infiltrates or atelectasis. The Peterson Mckeon MD Head CT 10/08/17 0000 Signed Impressions: Service Date/Time: Sunday, October 08, 2017 20:37 - CONCLUSION: 1. No acute findings in the brain. Peterson Mckeon MD Objective Remarks GENERAL: Thin, male sitting up in bed CARDIOVASCULAR: Tachycardic. Regular rhythm without murmurs, gallops, or rubs. RESPIRATORY: Poor air movement. No wheezes/rales/rhonchi. GASTROINTESTINAL: Abdomen soft, non-tender, nondistended. No hepato-splenomegaly , or palpable masses. No guarding. MUSCULOSKELETAL: Extremities without clubbing, cyanosis, or edema. No joint tenderness, effusion, or edema noted. No calf tenderness. NEUROLOGICAL: Awake and alert. Cranial nerves II through XII intact. Motor and sensory grossly within normal limits. Normal speech. A/P Assessment and Plan 1. NSTEMI Initial troponin elevated at 0.18 EKG showed sinus tachycardia without ST segment elevations or depressions, personally reviewed serial troponins/EKGs Heparin bolus and drip Cardiology consulted, appreciate recommendations Plan for stress test 10/10/17 2. COPD exacerbation/possible pneumonia DuoNeb's IV steroids Supplemental oxygen as needed Levaquin 3. Chronic pain/anxiety Continue home Percocet Continue home Klonopin at reduced dose DC NS at 100 cc/hr CM consulted fpr DC plan as need DVT ppx on Heparin ggt Discussed with the patient and nurse. Discussed with cardiology plan for stress test tomorrow Vivi Bautista MD Oct 09, 2017 13:06
[2017-10-09] MEDS ORDERED: oxyCODONE/ACETAMINOPHEN 10 MG/325 MG TAB PO PRN (13:15)
[2017-10-09] MEDS ORDERED: oxyCODONE/ACETAMINOPHEN 5 MG/325 MG TAB PO PRN (14:15)
--- NOTE | 2017-10-09 15:03 | MB ---
cc: Ron Bauer DO DATE OF CONSULT: 10/09/2017 REASON FOR CONSULTATION: Elevated troponin. HISTORY OF PRESENT ILLNESS: Musa Valero is a 57-year-old male who presented to [facility] emergency room on 10/08/2017 due to shortness of breath. He states that he has been short of breath for the past 24-48 hours. He is intermittently on 4 L of oxygen at home usually, but for the past 2 days, he has been without oxygen. He attempted to use his inhaler multiple times and essentially went through a whole inhaler throughout the day. He does state that he has had some chest pain which is sharp and stabbing and substernal in nature. He states that this is somewhat more when he takes a deep breath. He has also had an increasing nonproductive cough and felt somewhat wheezy. He denies any fevers or chills. PAST MEDICAL HISTORY: 1. COPD. 2. Chronic pain. 3. Anxiety. PAST SURGICAL HISTORY: 1. Right knee surgery. 2. Left humerus surgery. ALLERGIES: NO KNOWN DRUG ALLERGIES. MEDICATIONS: 1. Spiriva 18 mcg daily. 2. Albuterol 1 puff every 4 hours as needed for shortness of breath. 3. Percocet 10/325 every 4 hours as needed for pain. 4. Klonopin 2 mg b.i.d. 5. Advair 250/50 b.i.d. FAMILY HISTORY: Denies premature coronary artery disease or sudden cardiac within the family. SOCIAL HISTORY: Patient smokes around 5 cigarettes per day. Denies illicit drug or alcohol abuse. REVIEW OF SYSTEMS: Fourteen systems were reviewed including osteopathic. Pertinent positives and negative as above. Otherwise negative. PHYSICAL EXAMINATION: VITAL SIGNS: Temp 97.6, heart rate 99, blood pressure 144/73, respirations 20, pulse ox 96% on 2 L. GENERAL: The patient is alert, awake and oriented x 3. No acute distress. Multiple areas of abrasions. HEENT: Extraocular muscles intact. Mucous membranes moist. NECK: Supple. No JVD at 45 degrees. No carotid bruits heard bilaterally. Carotid upstroke is brisk in nature. HEART: Regular rate and rhythm. Positive first and second heart sounds with no noted murmurs, gallops, or rubs. LUNGS: Have poor air movement in and out with no overt wheezes, rales, or rhonchi. ABDOMEN: Soft, nontender, nondistended. No organomegaly noted. EXTREMITIES: Show no clubbing, cyanosis, or edema. Femoral and distal pulses intact bilaterally. NEUROLOGIC: No focal deficits. SKIN: Warm, dry, and intact. OSTEOPATHIC: No kyphoscoliosis, lordosis, or paraspinal tender points. LABORATORY STUDIES: Hemoglobin 11.5, hematocrit 34.2, platelets 321. Potassium 4.3. BUN 18, creatinine 0.84. Troponin 0.18, decreasing to 0.09. UDS positive for opiates, benzodiazepines, and cocaine. ELECTROCARDIOGRAM: 10/09/2017 at 0639: Normal sinus rhythm with no acute ST-T wave changes. IMPRESSIONS: 1. Shortness of breath, most likely secondary to chronic obstructive pulmonary disease exacerbation. 2. Emphysema, on intermittent oxygen at home with no available oxygen at home at this time. 3. Elevated troponin, type 2 in nature. 4. Tobacco abuse. 5. Atypical chest pain. 6. Cocaine abuse with urine drug screen positive for cocaine. RECOMMENDATIONS: 1. Mr. Valero presented with chest pain and shortness of breath and this appears to be mostly due to a COPD exacerbation. 2. He did have a mildly elevated troponin which is coming down and most likely type 2 in nature due to his significant shortness of breath from COPD. I did discuss with him consideration of ischemic evaluation, although my overall concern is with his cocaine abuse, but since he does endorse chest pain, albeit atypical in nature, I feel that we should at least evaluate him and if a significant area of ischemia, would consider possible cardiac catheterization. 3. I spoke to him for greater than 3 minutes about tobacco abuse. 4. I also spoke to him about his cocaine abuse. 5. We will check a 2-D echo to look at his overall left ventricular function, cardiac structure, and possible valvulopathies. 6. Further recommendations will be made based on the hospital course. Thank you for allowing me to see Musa Valero. If there are any questions, please do not hesitate to call. Ron Bauer, VGP/TI , 02:44 PM , 03:01 PM
--- NOTE | 2017-10-09 18:58 | EKG ---
Date Performed: 10/09/2017 Time Performed: 06:39:40 PTAGE: 57 years EKG: Sinus rhythm NORMAL ECG Since the prior tracing, there has been no significant change PREVIOUS TRACING : 10/09/2017 01.31 DOCTOR: Jones Cano Interpretating Date/Time 10/09/2017 18:56:17
--- NOTE | 2017-10-09 18:58 | EKG ---
Date Performed: 10/09/2017 Time Performed: 01:31:33 PTAGE: 57 years EKG: SINUS TACHYCARDIA ABNORMAL RHYTHM ECG Since the prior tracing, there has been no significan t change NO PREVIOUS TRACING DOCTOR: Jones Cano Interpretating Date/Time 10/09/2017 18:56:35
--- NOTE | 2017-10-09 18:59 | EKG ---
Date Performed: 10/08/2017 Time Performed: 17:13:22 PTAGE: 57 years EKG: SINUS TACHYCARDIA WITH SHORT HI INTERVAL ABNORMAL RHYTHM ECG Since the prior tracing, there has been no significant change PREVIOUS TRACING : 02/25/2016 01.36 DOCTOR: Jones Cano Interpretating Date/Time 10/09/2017 18:56:45
[2017-10-09] MEDS: LEVOFLOXACIN 750 MG PREMIX INJ 150 ML IV SCH (20:22)
[2017-10-10] VITALS (8 sets, daily range): BP systolic 110–162; BP diastolic 63–81; PULSE 80–109; RESP 20–24; TEMP 96.9–97.8; O2SAT 92–98
[2017-10-10] MEDS: methylPREDNISolone SOD SUCC 125 MG/2 ML VIAL IV PUSH SCH ×4 (00:05→18:00)
[2017-10-10] MEDS: RESP: ALBUTEROL 2.5 MG/IPRATROPIUM 0.5 MG NEB (SCH) INH ×5 (04:25→20:48)
[2017-10-10] MEDS: HEPARIN SODIUM - SQ 10,000 UNITS/ML VIAL SQ SCH ×3 (04:45→21:42)
[2017-10-10] MEDS: oxyCODONE/ACETAMINOPHEN 5 MG/325 MG TAB PO PRN ×4 (05:56→21:42)
[2017-10-10 06:40] LABS: AUTOMATED NEUTROPHIL # 10.6 TH/MM3 (1.8-7.7); BASOPHIL % 0.1 % (0.0-2.0); HEMATOCRIT 34.7 % (39.0-51.0); HEMOGLOBIN 11.5 GM/DL (13.0-17.0); LYMPH % 8.1 % (9.0-44.0); MEAN CELL VOLUME 90.4 FL (80.0-100.0); MEAN CORPUSCULAR HEMOGLOBIN 29.9 PG (27.0-34.0); MEAN CORPUSCULAR HGB CONC 33.1 % (32.0-36.0); MEAN PLATELET VOLUME 8.1 FL (7.0-11.0); MONO % 9.6 % (0.0-8.0); MONOCYTE # 1.2 TH/MM3 (0-0.9); NEUT % 82.2 % (16.0-70.0); PLATELET COUNT 348 TH/MM3 (150-450); RED BLOOD COUNT 3.84 MIL/MM3 (4.50-5.90); RED CELL DISTRIBUTION WIDTH 15.1 % (11.6-17.2); WHITE BLOOD COUNT 12.9 TH/MM3 (4.0-11.0)
[2017-10-10 07:05] LABS: BICARBONATE 32.2 MEQ/L (21.0-32.0); CALCIUM 8.3 MG/DL (8.5-10.1); CREATININE 0.82 MG/DL (0.60-1.30)
[2017-10-10] MEDS: SODIUM CHLORIDE 0.9% FLUSH 10 ML FLUSH IV FLUSH SCH ×2 (07:40→21:34)
[2017-10-10] MEDS: BUDESONIDE-FORMOTEROL 160/4.5 MCG INHALER INH SCH ×2 (08:08→21:41)
[2017-10-10] MEDS: clonazePAM 1 MG TAB PO SCH ×2 (08:08→21:41)
[2017-10-10] MEDS: ASPIRIN 81 MG CHEW TAB CHEW SCH (08:08)
[2017-10-10] MEDS: TIOTROPIUM BROMIDE 18 MCG INH INH SCH (08:09)
--- NOTE | 2017-10-10 10:52 | HHI.PR ---
Subjective Remarks In bed he just came from the stress test. Demanding to have meals. Since she is very hungry. Says he is supposed to be on oxygen at home however he broke up with his girlfriend and he does not have the oxygen anymore. Says he is homeless at this time. He denies any chest pain or shortness of breath at this time he is saturating well on 2 L by nasal cannula. No cough. No fever or chills overnight Objective Vitals Vital Signs Date Time Temp Pulse Resp B/P (MAP) Pulse Ox O2 Delivery O2 Flow Rate FiO2 10/10/17 08:23 Nasal Cannula 3.00 10/10/17 08:00 96.9 85 20 138/81 (100) 93 10/10/17 04:00 97.8 80 20 133/77 (95) 94 10/10/17 00:00 97.7 99 20 110/63 (79) 93 10/10/17 00:00 103 10/09/17 20:00 103 10/09/17 20:00 97.3 100 20 130/72 (91) 96 10/09/17 20:00 Nasal Cannula 2.00 10/09/17 16:00 97.9 103 20 144/85 (104) 92 10/09/17 15:57 90 Nasal Cannula 3.00 10/09/17 13:29 97.6 99 20 144/73 (96) 96 I/O 10/09/17 10/09/17 10/09/17 10/10/17 10/10/17 10/10/17 07:00 15:00 23:00 07:00 15:00 23:00 Intake Total 720 ml 0 ml Output Total 700 ml Balance -700 ml 720 ml 0 ml Intake Oral 720 ml 0 ml Output Urine Total 700 ml # Voids 1 2 # Bowel Movements 0 Result Diagram: 10/10/17 0610/10/17599 Imaging Last Impressions Myocardial Perfusion Scan Nuc Med 10/10/17599 Signed Impressions: Service Date/Time: Tuesday, October 10, 2017 10:59 - CONCLUSION: 1. No reversible perfusion defects to suggest ischemia. 2. Match defect along the anterior wall and apex. 3. Normal ejection fraction. RISK CATEGORY: Low (<1%% Annual Mortality Rate) Trung Asif MD Chest X-Ray 3/5/18 1706 Signed Impressions: Service Date/Time: Sunday, October 08, 2017 17:36 - CONCLUSION: No acute disease. Peterson Denis Jr., MD CT Angiography 10/08/171705 Signed Impressions: Service Date/Time: Sunday, October 08, 2017 20:39 - CONCLUSION: 1. Negative for pulmonary embolism. 2. Chronic lung disease with severe centrilobular emphysema , left posterior apical probable scarring, and bilateral costophrenic angle infiltrates or atelectasis. The Peterson Mckeon MD Head CT 10/08/17 0000 Signed Impressions: Service Date/Time: Sunday, October 08, 2017 20:37 - CONCLUSION: 1. No acute findings in the brain. Peterson Mckeon MD Objective Remarks GENERAL: Thin, male sitting up in bed CARDIOVASCULAR: Tachycardic. Regular rhythm without murmurs, gallops, or rubs. RESPIRATORY: Poor air movement. No wheezes/rales/rhonchi. GASTROINTESTINAL: Abdomen soft, non-tender, nondistended. No hepato-splenomegaly , or palpable masses. No guarding. MUSCULOSKELETAL: Extremities without clubbing, cyanosis, or edema. No joint tenderness, effusion, or edema noted. No calf tenderness. NEUROLOGICAL: Awake and alert. Cranial nerves II through XII intact. Motor and sensory grossly within normal limits. Normal speech. A/P Assessment and Plan 1. NSTEMI Initial troponin elevated at 0.18 EKG showed sinus tachycardia without ST segment elevations or depressions, personally reviewed serial troponins/EKGs Heparin bolus and drip Cardiology consulted, appreciate recommendations Status post stress test 10/10/17, no risk 2. COPD exacerbation/possible pneumonia DuoNeb's IV steroids, taper down switched to prednisone and taper Supplemental oxygen as needed Levaquin 3. Chronic pain/anxiety Continue home Percocet Continue home Klonopin at reduced dose DC NS at 100 cc/hr CM consulted for DC plan as need DVT ppx on Heparin ggt Discussed with the patient and nurse. Discussed with cardiology patient has stress test. Low risk. Patient is oxygen at home Patient is homeless. Discussed with case management difficult discharge. Discharge patient when arrangements Vivi Bautista MD Oct 10, 2017 10:52
[2017-10-10] MEDS ORDERED: REGADENOSON INJ 0.4 MG/5 ML SYR ONE (11:16)
--- NOTE | 2017-10-10 12:22 | RADRPT ---
EXAM DATE/TIME: 10/10/2017 10:59 [facility] COMPARISON: No previous studies available for comparison. INDICATIONS : Substernal chest pain. Angina. DOSE: 25.9 mCi Tc99m Myoview at stress. 8.7 mCi Tc99m Myoview at rest. 0.4 mg Lexiscan STRESS SYMPTOMS: Short of breath. EJECTION FRACTION: 67% MEDICAL HISTORY : Hepatitis C. Hypertension. Chronic obstructive pulmonary disease. SURGICAL HISTORY : Right knee suergery. ENCOUNTER: Initial ACUITY: 1 day PAIN SCALE: 3/10 LOCATION: Substernal chest TECHNIQUE: The patient underwent pharmacologic stress with infusion of prescribed dose. Continuous ECG tracing was monitored during stress. Gated SPECT imaging was performed after stress and conventional SPECT i maging was performed at rest. The examination was performed on a SPECT/CT scanner, both attenuation and non-corrected datasets were reviewed. FINDINGS: DISTRIBUTION: The maximum perfused segment at stress is in the inferoseptal wall. PERFUSION STUDY: Match defect along the apex and anterior wall. No reversible perfusion defects.. GATED STUDY: There is intact wall motion and thickening without hypokinetic or dyskinetic segments. CONCLUSION: 1. No reversible perfusion defects to suggest ischemia. 2. Match defect along the anterior wall and apex. 3. Normal ejection fraction. RISK CATEGORY: Low (<1% Annual Mortality Rate) Trung Asif MD on October 10, 2017 at 12:17 Board Certified Radiologist. This report was verified electronically.
[2017-10-10] MEDS ORDERED: SPIRCAP INH (12:32)
[2017-10-10] MEDS ORDERED: VENTAER INH (12:32)
[2017-10-10] MEDS ORDERED: CEFU1TAB18 PO (12:32)
[2017-10-10] MEDS ORDERED: PRED10PA PO (12:32)
--- NOTE | 2017-10-10 12:33 | HHI.DS ---
Discharge Summary Admission Date Oct 08, 2017 at 20:14 Discharge Date: Oct 10, 2017 Admitting Diagnosis NSTEMI, COPD exacerbation (1) Opiate abuse, continuous ICD Code: F11.10 - Opioid abuse, uncomplicated Status: Acute (2) COPD with acute exacerbation ICD Code: J44.1 - Chronic obstructive pulmonary disease with (acute) exacerbation (3) Chest pain ICD Code: R07.9 - Chest pain, unspecified (4) Pneumonia ICD Code: J18.9 - Pneumonia, unspecified organism (5) Hypoxia ICD Code: R09.02 - Hypoxemia Procedures stress test Brief History - From Admission 57-year-old male with a past medical history significant for COPD, chronic pain and anxiety presents the emergency department complaining of 18 hours of shortness of breath. The patient reports that he is intermittently on 4 L of oxygen by nasal cannula at home. He reports for the past 2 days he has been without his oxygen. He also endorses chest pain that has been going on for the previous day which she describes as sharp and substernal. He also endorses intermittent bouts of diaphoresis. He complains of a increasing nonproductive cough. He denies any fever/chills. No nausea/vomiting/diarrhea. No weakness/ dizziness. No lateralizing signs/symptoms. CBC/BMP: 10/10/17 0600 10/10/17 0600 Significant Findings Laboratory Tests Test 10/08/17 17:15 10/08/17 21:05 10/08/17 21:07 10/09/17 03:10 White Blood Count 15.9 TH/MM3 (4.0-11.0) Red Blood Count 3.94 MIL/MM3 (4.50-5.90) 3.76 MIL/MM3 (4.50-5.90) Hemoglobin 12.2 GM/DL (13.0-17.0) 11.5 GM/DL (13.0-17.0) Hematocrit 36.5 % (39.0-51.0) 34.2 % (39.0-51.0) Neutrophils (%) (Auto) 74.8 % (16.0-70.0) 93.2 % (16.0-70.0) Monocytes (%) (Auto) 13.2 % (0.0-8.0) Neutrophils # (Auto) 11.9 TH/MM3 (1.8-7.7) 9.1 TH/MM3 (1.8-7.7) Monocytes # (Auto) 2.1 TH/MM3 (0-0.9) Activated Partial Thromboplast Time 22.8 SEC (24.3-30.1) Blood Urea Nitrogen 27 MG/DL (7-18) Random Glucose 108 MG/DL (74-106) 119 MG/DL (74-106) Aspartate Amino Transf (AST/SGOT) 65 U/L (15-37) 49 U/L (15-37) Alanine Aminotransferase (ALT/SGPT) 134 U/L (12-78) 113 U/L (12-78) Carbon Dioxide Level 32.4 MEQ/L (21.0-32.0) Estimat Glomerular Filtration Rate 68 ML/MIN (>89) Total Creatine Kinase 333 U/L (39-308) Creatine Kinase MB 5.2 NG/ML (0.5-3.6) Troponin I 0.18 NG/ML (0.02-0.05) 0.14 NG/ML (0.02-0.05) 0.09 NG/ML (0.02-0.05) B-Type Natriuretic Peptide 152 PG/ML (0-100) Urine Mucus FEW /lpf (OCC) Urine Opiates Screen POS (NEG) Urine Benzodiazepines Screen POS (NEG) Urine Cocaine Screen POS (NEG) Lymphocytes (%) (Auto) 5.6 % (9.0-44.0) Lymphocytes # (Auto) 0.5 TH/MM3 (1.0-4.8) Albumin 2.9 GM/DL (3.4-5.0) Calcium Level 8.2 MG/DL (8.5-10.1) Anion Gap 4 MEQ/L (5-15) Test 10/09/17 06:33 10/09/17 11:50 10/10/17 06:00 Activated Partial Thromboplast Time 55.0 SEC (24.3-30.1) White Blood Count 12.9 TH/MM3 (4.0-11.0) Red Blood Count 3.84 MIL/MM3 (4.50-5.90) Hemoglobin 11.5 GM/DL (13.0-17.0) Hematocrit 34.7 % (39.0-51.0) Neutrophils (%) (Auto) 82.2 % (16.0-70.0) Lymphocytes (%) (Auto) 8.1 % (9.0-44.0) Monocytes (%) (Auto) 9.6 % (0.0-8.0) Neutrophils # (Auto) 10.6 TH/MM3 (1.8-7.7) Monocytes # (Auto) 1.2 TH/MM3 (0-0.9) Blood Urea Nitrogen 25 MG/DL (7-18) Random Glucose 126 MG/DL (74-106) Calcium Level 8.3 MG/DL (8.5-10.1) Carbon Dioxide Level 32.2 MEQ/L (21.0-32.0) Anion Gap 4 MEQ/L (5-15) Imaging Last Impressions Chest X-Ray 10/08/17 1706 Signed Impressions: Service Date/Time: Sunday, October 08, 2017 17:36 - CONCLUSION: No acute disease. Peterson Denis Jr., MD CT Angiography 10/08/17 1706 Signed Impressions: Service Date/Time: Sunday, October 08, 2017 20:39 - CONCLUSION: 1. Negative for pulmonary embolism. 2. Chronic lung disease with severe centrilobular emphysema , left posterior apical probable scarring, and bilateral costophrenic angle infiltrates or atelectasis. The Peterson Mckeon MD Head CT 10/08/17 0000 Signed Impressions: Service Date/Time: Sunday, October 08, 2017 20:37 - CONCLUSION: 1. No acute findings in the brain. Peterson Mckeon MD PE at Discharge GENERAL: Thin, male sitting up in bed CARDIOVASCULAR: Tachycardic. Regular rhythm without murmurs, gallops, or rubs. RESPIRATORY: Poor air movement. No wheezes/rales/rhonchi. GASTROINTESTINAL: Abdomen soft, non-tender, nondistended. No hepato-splenomegaly , or palpable masses. No guarding. MUSCULOSKELETAL: Extremities without clubbing, cyanosis, or edema. No joint tenderness, effusion, or edema noted. No calf tenderness. NEUROLOGICAL: Awake and alert. Cranial nerves II through XII intact. Motor and sensory grossly within normal limits. Normal speech. Hospital Course 1. NSTEMI Initial troponin elevated at 0.18 EKG showed sinus tachycardia without ST segment elevations or depressions, personally reviewed serial troponins/EKGs Heparin bolus and drip Cardiology consulted, appreciate recommendations Status post stress test 10/10/17, no risk 2. COPD exacerbation/possible pneumonia DuoNeb's IV steroids, taper down switched to prednisone and taper Supplemental oxygen as needed Levaquin 3. Chronic pain/anxiety Continue home Percocet Continue home Klonopin at reduced dose DC NS at 100 cc/hr CM consulted for DC plan as need DVT ppx on Heparin ggt Discussed with the patient and nurse. Discussed with cardiology patient has stress test. Low risk. Patient is oxygen at home Patient is homeless. Discussed with case management difficult discharge. Discharge patient when arrangements Pt Condition on Discharge: Stable Discharge Disposition: Disch w/ Home Health Serv Discharge Time: > 30 minutes Discharge Instructions DIET: Follow Instructions for: Heart Healthy Diet Activities you can perform: Regular-No Restrictions Follow up Referrals: PCP Follow-up - 2-3 Days PCP Follow-up with [facility] - 1 Week New Medications: Cefuroxime (Ceftin) 250 Mg Tab 250 MG PO BID for infection , #14 TAB Oxygen (O2) (Oxygen (O2)) Device LITER ASHLIE.CANULA CONTINUOUS for Prevent Hypoxemia, #2 Oxygen Concentrator Portable Gaseous 2 L/min via Nasal Canula Continuous For 99 months Prednisone (21) 10 mg tab Dose Pack (Prednisone (21) 10 mg tab Dose Pack) 10 Mg Pack 10 MG PO DIRECTED for Inflammation, #1 DSPK 0 Refills Clonazepam (Klonopin) 1 Mg Tab 1 MG PO Q12HR for anxiety, #10 TAB Continued Medications: Albuterol 18 GM Inh (Ventolin Hfa 18 GM Inh) 90 Mcg/Act Aer 1 PUFF INH Q4H PRN for SHORTNESS OF BREATH for 30 Days, #20 INHALER 0 Refills ( This prescription has been renewed) Fluticasone-Salmeterol Inh (Advair Diskus Inh) 250-50 Mcg/Blist Aer 1 PUFF INH BID, INHALER 0 Refills Rinse mouth after use. Oxycodone-Acetaminophen (Percocet) 10-325 mg Tab 1 TAB PO Q4H PRN for PAIN, TAB 0 Refills Tiotropium Inh (Spiriva Handihaler) 18 Mcg Cap 18 MCG INH DAILY for COPD for 30 Days, #30 CAP 0 Refills (This prescription has been renewed) 1 capsule = 18 mcg Discontinued Medications: Clonazepam (Klonopin) 2 Mg Tab 2 MG PO BID, TAB 0 Refills Vivi Bautista MD Oct 10, 2017 12:33
[2017-10-10] MEDS ORDERED: CLON1 PO (12:36)
[2017-10-10] MEDS ORDERED: OXYGENDME NAS.CANULA (12:38)
--- NOTE | 2017-10-10 12:38 | HHI.FF ---
Face to Face Verification Diagnosis: (1) COPD with acute exacerbation (2) Opiate abuse, continuous (3) Chest pain (4) Pneumonia (5) Hypoxia (6) Adjustment disorder with mixed disturbance of emotions and conduct Home Health Nursing Order: Medical education Signs/symptoms of disease process Medication education-adverse effect Nursing assessment with vital signs I have seen patient Musa Valero on 10/10/17. My clinical findings support the need for the requested home health care services because: Ltd mobility - disease progression Patient has SOB I certify that my clinical findings support that this patient is homebound because: Post-op weakness Hx COPD- exertion dyspnea/weakness Vivi Bautista MD Oct 10, 2017 12:38
--- NOTE | 2017-10-10 14:07 | PD.CARD.PN ---
Subjective Subjective Remarks No events overnight Objective Medications Current Medications Medications (Trade) Dose Ordered Sig/Christiana Route Start Time Stop Time Status Last Admin (NS Flush) 2 ml BID IV FLUSH 10/08/17 21:00 10/10/17 07:40 (NS Flush) 2 ml UNSCH PRN IV FLUSH 10/08/17 20:45 (Duoneb Neb) 1 ampule Q4HR NEB INH 10/09/17 00:00 10/10/17 12:31 (Albuterol Neb) 2.5 mg Q2HR NEB PRN INH 10/08/17 20:45 Levofloxacin/ Dextrose 150 ml @ 100 mls/hr Q24H IV 10/08/17 22:00 10/09/17 20:22 (Heparin Inj) 5,000 units Q8H SQ 10/08/17 20:45 10/10/17 12:06 (Spiriva Inh) 18 mcg DAILY INH 10/09/17 09:00 10/10/17 08:09 (Symbicort 160-4.5 Mcg Inh) 1 puff BID INH 10/09/17 09:00 10/10/17 08:08 (KlonoPIN) 1 mg Q12HR PO 10/09/17 09:00 10/10/17 08:08 (Percocet 5-325 Mg) 2 tab Q4H PRN PO 10/09/17 15:45 10/10/17 12:07 (Percocet 5-325 Mg) 1 tab Q4H PRN PO 10/09/17 14:15 (Aspirin Chew) 81 mg DAILY CHEW 10/10/17 09:00 10/10/17 08:08 (SoluMEDROL INJ) 60 mg Q8H IV PUSH 10/10/17 19:00 Vital Signs / I&O Vital Signs Date Time Temp Pulse Resp B/P (MAP) Pulse Ox O2 Delivery O2 Flow Rate FiO2 10/10/17 13:41 4.00 10/10/17 12:00 97.4 99 22 162/75 (104) 97 10/10/17 08:23 Nasal Cannula 3.00 10/10/17 08:00 96.9 85 20 138/81 (100) 93 10/10/17 04:00 97.8 80 20 133/77 (95) 94 10/10/17 00:00 97.7 99 20 110/63 (79) 93 10/10/17 00:00 103 10/09/17 20:00 103 10/09/17 20:00 97.3 100 20 130/72 (91) 96 10/09/17 20:00 Nasal Cannula 2.00 10/09/17 16:00 97.9 103 20 144/85 (104) 92 10/09/17 15:57 90 Nasal Cannula 3.00 I/O 10/09/17 10/09/17 10/09/17 10/10/17 10/10/17 10/10/17 07:00 15:00 23:00 07:00 15:00 23:00 Intake Total 720 ml 0 ml Output Total 700 ml Balance -700 ml 720 ml 0 ml Intake Oral 720 ml 0 ml Output Urine Total 700 ml # Voids 1 2 # Bowel Movements 0 Physical Exam GENERAL: NAD, AAOx3 SKIN: Warm and dry. HEAD: Atraumatic. Normocephalic. EYES: Pupils equal and round. No scleral icterus. No injection or drainage. ENT: No nasal bleeding or discharge. Mucous membranes pink and moist. NECK: Trachea midline. No JVD. CARDIOVASCULAR: Regular rate and rhythm. RESPIRATORY: No accessory muscle use. Decreased breath sounds bilaterally GASTROINTESTINAL: Abdomen soft, non-tender, nondistended. Hepatic and splenic margins not palpable. MUSCULOSKELETAL: Extremities without clubbing, cyanosis, or edema. No obvious deformities. NEUROLOGICAL: Awake and alert. No obvious cranial nerve deficits. Motor grossly within normal limits. Five out of 5 muscle strength in the arms and legs. Normal speech. PSYCHIATRIC: Appropriate mood and affect; insight and judgment normal. Laboratory Laboratory Tests Test 10/10/17 06:00 White Blood Count 12.9 TH/MM3 Red Blood Count 3.84 MIL/MM3 Hemoglobin 11.5 GM/DL Hematocrit 34.7 % Mean Corpuscular Volume 90.4 FL Mean Corpuscular Hemoglobin 29.9 PG Mean Corpuscular Hemoglobin Concent 33.1 % Red Cell Distribution Width 15.1 % Platelet Count 348 TH/MM3 Mean Platelet Volume 8.1 FL Neutrophils (%) (Auto) 82.2 % Lymphocytes (%) (Auto) 8.1 % Monocytes (%) (Auto) 9.6 % Eosinophils (%) (Auto) 0.0 % Basophils (%) (Auto) 0.1 % Neutrophils # (Auto) 10.6 TH/MM3 Lymphocytes # (Auto) 1.0 TH/MM3 Monocytes # (Auto) 1.2 TH/MM3 Eosinophils # (Auto) 0.0 TH/MM3 Basophils # (Auto) 0.0 TH/MM3 CBC Comment DIFF FINAL Differential Comment Blood Urea Nitrogen 25 MG/DL Creatinine 0.82 MG/DL Random Glucose 126 MG/DL Calcium Level 8.3 MG/DL Sodium Level 139 MEQ/L Potassium Level 4.2 MEQ/L Chloride Level 103 MEQ/L Carbon Dioxide Level 32.2 MEQ/L Anion Gap 4 MEQ/L Estimat Glomerular Filtration Rate 97 ML/MIN Imaging Last 24 hours Impressions Myocardial Perfusion Scan Nuc Med 10/10/17 0600 Signed Impressions: Service Date/Time: Tuesday, October 10, 2017 10:59 - CONCLUSION: 1. No reversible perfusion defects to suggest ischemia. 2. Match defect along the anterior wall and apex. 3. Normal ejection fraction. RISK CATEGORY: Low (<1%% Annual Mortality Rate) Trung Asif MD Assessment and Plan Problem List: (1) Elevated troponin ICD Codes: R74.8 - Abnormal levels of other serum enzymes (2) COPD with acute exacerbation ICD Codes: J44.1 - Chronic obstructive pulmonary disease with (acute) exacerbation (3) Opiate abuse, continuous ICD Codes: F11.10 - Opioid abuse, uncomplicated Status: Acute (4) Chest pain ICD Codes: R07.9 - Chest pain, unspecified Assessment and Plan 1) COPD exacerbation per primary team 2) Elevated trop type 2 in nature 3) Stress test showing no ischemia 4) Tobacco cessation 5) Cocaine cessation 6) 2D echo pending If no problems, then no further cardiovascular work up and cardiovascularly stable for discharge Ron Bauer DO Oct 10, 2017 14:06
--- NOTE | 2017-10-10 15:17 | ECHRPT ---
Indication: coronary atherosclerosis CONCLUSIONS The left ventricular systolic function is normal with an estimated ejection fraction in the range of 60-65%. Normal left ventricular size. Wall thickness is normal. No regional wall motion abnormalities are present. Trace mitral valve regurgitation. Aortic valve sclerosis is present. There is trace tricuspid valve regurgitation. The estimated pulmonary arterial pressure is 38.5 mmHg. BP: 133 / 77 HR: 80 Rhythm: Sinus MEASUREMENTS (Male / Female) Normal Values Technical Quality:Good 2D ECHO LV Diastolic Diameter PLAX 4.7 cm 4.2 - 5.9 / 3.9 - 5.3 cm LV Systolic Diameter PLAX 3.1 cm IVS Diastolic Thickness 0.9 cm 0.6 - 1.0 / 0.6 - 0.9 cm LVPW Diastolic Thickness 0.9 cm 0.6 - 1.0 / 0.6 - 0.9 cm LV Relative Wall Thickness 0.4 RV Internal Dim ED PLAX 3.4 cm LVOT Diameter 2.2 cm LA Systolic Diameter LX 4.0 cm 3.0 - 4.0 / 2.7 - 3.8 cm LV Ejection Fraction MOD 4C 66.7 % LV Cardiac Index MOD 4C 2969.1 cm/minm LV Ejection Fraction 4C AL 69.1 % LV Cardiac Index 4C AL 3177.9 cm/minm DOPPLER AV Peak Velocity 138.0 cm/s AV Peak Gradient 7.6 mmHg LVOT Peak Velocity 99.7 cm/s LVOT Peak Gradient 4.0 mmHg AV Area Cont Eq pk 2.7 cm MV Area PHT 4.8 cm Mitral E Point Velocity 68.6 cm/s Mitral A Point Velocity 68.6 cm/s Mitral E to A Ratio 1.0 LV E' Lateral Velocity 11.0 cm/s Mitral E to LV E' Lateral Ratio 6.2 LV E' Septal Velocity 9.3 cm/s Mitral E to LV E' Septal Ratio 7.4 TR Peak Velocity 267.0 cm/s TR Peak Gradient 28.5 mmHg Right Atrial Pressure 10.0 mmHg Pulmonary Artery Systolic Pressu 38.5 mmHg Right Ventricular Systolic Press 38.5 mmHg PV Peak Velocity 126.0 cm/s PV Peak Gradient 6.4 mmHg FINDINGS LEFT VENTRICLE The left ventricular systolic function is normal with an estimated ejection fraction in the range of 60-65%. Normal left ventricular size. Wall thickness is normal. No regional wall motion abnormalities are present. RIGHT VENTRICLE Normal right ventricular size and systolic function. LEFT ATRIUM The left atrial size is normal. RIGHT ATRIUM The right atrial size is normal. ATRIAL SEPTUM Normal atrial septal thickness without atrial level shunting by limited color doppler interrogation. AORTA The aortic root and proximal ascending aorta are normal in size on limited imaging. MITRAL VALVE Structurally normal mitral valve. Trace mitral valve regurgitation. AORTIC VALVE Trileaflet aortic valve. Aortic valve sclerosis is present. TRICUSPID VALVE Structurally normal tricuspid valve. There is trace tricuspid valve regurgitation. The estimated pulmonary arterial pressure is 38.5 mmHg. PULMONARY VALVE No pulmonary valve regurgitation or stenosis. VESSELS The inferior vena cava is normal in size. PERICARDIUM No pericardial effusion. Jones Cano MD (Electronically Signed) Final Date:10 October 2017 15:16
[2017-10-10] MEDS: LEVOFLOXACIN 750 MG PREMIX INJ 150 ML IV SCH (21:34)
[2017-10-11] VITALS (7 sets, daily range): BP systolic 122–141; BP diastolic 59–74; PULSE 83–101; RESP 18–20; TEMP 97.3–98.5; O2SAT 91–96
[2017-10-11] MEDS: RESP: ALBUTEROL 2.5 MG/IPRATROPIUM 0.5 MG NEB (SCH) INH ×7 (00:06→23:15)
[2017-10-11] MEDS: methylPREDNISolone SOD SUCC 125 MG/2 ML VIAL IV PUSH SCH ×2 (03:46→13:27)
[2017-10-11] MEDS: HEPARIN SODIUM - SQ 10,000 UNITS/ML VIAL SQ SCH ×3 (03:47→21:32)
[2017-10-11] MEDS: oxyCODONE/ACETAMINOPHEN 5 MG/325 MG TAB PO PRN ×4 (03:48→21:42)
[2017-10-11] MEDS: clonazePAM 1 MG TAB PO SCH (09:10)
[2017-10-11] MEDS: ASPIRIN 81 MG CHEW TAB CHEW SCH (09:10)
[2017-10-11] MEDS: BUDESONIDE-FORMOTEROL 160/4.5 MCG INHALER INH SCH ×2 (09:10→21:32)
[2017-10-11] MEDS: SODIUM CHLORIDE 0.9% FLUSH 10 ML FLUSH IV FLUSH SCH ×2 (09:10→21:32)
[2017-10-11] MEDS: TIOTROPIUM BROMIDE 18 MCG INH INH SCH (09:10)
--- NOTE | 2017-10-11 12:33 | PD.CARD.PN ---
Subjective Subjective Remarks No events overnight Objective Medications Current Medications Medications (Trade) Dose Ordered Sig/Christiana Route Start Time Stop Time Status Last Admin (NS Flush) 2 ml BID IV FLUSH 10/08/17 21:00 10/11/17 09:10 (NS Flush) 2 ml UNSCH PRN IV FLUSH 10/08/17 20:45 (Duoneb Neb) 1 ampule Q4HR NEB INH 10/09/17 00:00 10/11/17 11:39 (Albuterol Neb) 2.5 mg Q2HR NEB PRN INH 10/08/17 20:45 Levofloxacin/ Dextrose 150 ml @ 100 mls/hr Q24H IV 10/08/17 22:00 10/10/17 21:34 (Heparin Inj) 5,000 units Q8H SQ 10/08/17 20:45 10/11/17 03:47 (Spiriva Inh) 18 mcg DAILY INH 10/09/17 09:00 10/11/17 09:10 (Symbicort 160-4.5 Mcg Inh) 1 puff BID INH 10/09/17 09:00 10/11/17 09:10 (KlonoPIN) 1 mg Q12HR PO 10/09/17 09:00 10/11/17 09:10 (Percocet 5-325 Mg) 2 tab Q4H PRN PO 10/09/17 15:45 10/11/17 03:48 (Percocet 5-325 Mg) 1 tab Q4H PRN PO 10/09/17 14:15 (Aspirin Chew) 81 mg DAILY CHEW 10/10/17 09:00 10/11/17 09:10 (SoluMEDROL INJ) 60 mg Q8H IV PUSH 10/10/17 19:00 10/11/17 03:46 Vital Signs / I&O Vital Signs Date Time Temp Pulse Resp B/P (MAP) Pulse Ox O2 Delivery O2 Flow Rate FiO2 10/11/17 09:13 Nasal Cannula 4.00 10/11/17 08:00 83 10/11/17 08:00 97.7 87 18 141/69 (93) 94 10/11/17 04:00 95 10/11/17 04:00 Nasal Cannula 2.00 10/11/17 04:00 97.6 101 20 135/60 (85) 93 10/11/17 00:00 Nasal Cannula 2.00 10/11/17 00:00 98.5 93 18 128/59 (82) 93 10/11/17 00:00 99 10/10/17 20:50 95 Nasal Cannula 4.00 10/10/17 20:08 97.7 99 24 126/65 (85) 92 10/10/17 20:00 103 10/10/17 20:00 Nasal Cannula 2.00 10/10/17 16:00 97.3 109 20 138/71 (93) 98 10/10/17 13:41 4.00 I/O 10/10/17 10/10/17 10/10/17 10/11/17 10/11/17 10/11/17 07:00 15:00 23:00 07:00 15:00 23:00 Intake Total 0 ml 840 ml Output Total 850 ml Balance 0 ml -10 ml Intake Oral 0 ml 840 ml Output Urine Total 850 ml # Voids 2 4 # Bowel Movements 0 Physical Exam GENERAL: NAD, AAOx3 SKIN: Warm and dry. HEAD: Atraumatic. Normocephalic. EYES: Pupils equal and round. No scleral icterus. No injection or drainage. ENT: No nasal bleeding or discharge. Mucous membranes pink and moist. NECK: Trachea midline. No JVD. CARDIOVASCULAR: Regular rate and rhythm. RESPIRATORY: No accessory muscle use. Decreased breath sounds bilaterally GASTROINTESTINAL: Abdomen soft, non-tender, nondistended. Hepatic and splenic margins not palpable. MUSCULOSKELETAL: Extremities without clubbing, cyanosis, or edema. No obvious deformities. NEUROLOGICAL: Awake and alert. No obvious cranial nerve deficits. Motor grossly within normal limits. Five out of 5 muscle strength in the arms and legs. Normal speech. PSYCHIATRIC: Appropriate mood and affect; insight and judgment normal. Assessment and Plan Problem List: (1) Elevated troponin ICD Codes: R74.8 - Abnormal levels of other serum enzymes (2) COPD with acute exacerbation ICD Codes: J44.1 - Chronic obstructive pulmonary disease with (acute) exacerbation (3) Opiate abuse, continuous ICD Codes: F11.10 - Opioid abuse, uncomplicated Status: Acute (4) Chest pain ICD Codes: R07.9 - Chest pain, unspecified Assessment and Plan 1) COPD exacerbation per primary team 2) Elevated trop type 2 in nature 3) Stress test showing no ischemia 4) Tobacco cessation 5) Cocaine cessation 6) EF 60-65% 7) No further cardiovascular workup, will see Ron London DO Oct 11, 2017 12:33
--- NOTE | 2017-10-11 17:17 | HHI.PR ---
Subjective Remarks Pt tells me that "my nerves are getting to me". states he usually takes 2mg klonopin twice a day, apparently dose was decreased here to 1mg po BID. Pt also states that he will not leave AMA from [place] anymore, he understands the importance of having a place to stay Objective Vitals Vital Signs Date Time Temp Pulse Resp B/P (MAP) Pulse Ox O2 Delivery O2 Flow Rate FiO2 10/11/17 15:33 91 Nasal Cannula 4.00 10/11/17 12:00 97.3 89 20 134/73 (93) 93 10/11/17 09:13 Nasal Cannula 4.00 10/11/17 08:00 83 10/11/17 08:00 97.7 87 18 141/69 (93) 94 10/11/17 04:00 95 10/11/17 04:00 Nasal Cannula 2.00 10/11/17 04:00 97.6 101 20 135/60 (85) 93 10/11/17 00:00 Nasal Cannula 2.00 10/11/17 00:00 98.5 93 18 128/59 (82) 93 10/11/17 00:00 99 10/10/17 20:50 95 Nasal Cannula 4.00 10/10/17 20:08 97.7 99 24 126/65 (85) 92 10/10/17 20:00 103 10/10/17 20:00 Nasal Cannula 2.00 I/O 10/10/17 10/10/17 10/10/17 10/11/17 10/11/17 10/11/17 07:00 15:00 23:00 07:00 15:00 23:00 Intake Total 0 ml 840 ml Output Total 850 ml Balance 0 ml -10 ml Intake Oral 0 ml 840 ml Output Urine Total 850 ml # Voids 2 4 # Bowel Movements 0 Result Diagram: 10/10/1759910/10/17599 Imaging Last Impressions Myocardial Perfusion Scan Nuc Med 10/10/17599 Signed Impressions: Service Date/Time: Tuesday, October 10, 2017 10:59 - CONCLUSION: 1. No reversible perfusion defects to suggest ischemia. 2. Match defect along the anterior wall and apex. 3. Normal ejection fraction. RISK CATEGORY: Low (<1%% Annual Mortality Rate) Trung Asif MD Chest X-Ray 10/08/171705 Signed Impressions: Service Date/Time: Sunday, October 08, 2017 17:36 - CONCLUSION: No acute disease. Peterson Denis Jr., MD CT Angiography 10/08/171705 Signed Impressions: Service Date/Time: Sunday, October 08, 2017 20:39 - CONCLUSION: 1. Negative for pulmonary embolism. 2. Chronic lung disease with severe centrilobular emphysema , left posterior apical probable scarring, and bilateral costophrenic angle infiltrates or atelectasis. The Peterson Mckeon MD Head CT 10/08/17 0000 Signed Impressions: Service Date/Time: Sunday, October 08, 2017 20:37 - CONCLUSION: 1. No acute findings in the brain. Peterson Mckeon MD Objective Remarks GENERAL: Thin, male sitting up in bed CARDIOVASCULAR: Tachycardic. Regular rhythm without murmurs RESPIRATORY: Poor air movement. No wheezes/rales/rhonchi. GASTROINTESTINAL: Abdomen soft, non-tender, nondistended. No guarding. MUSCULOSKELETAL: Extremities without edema. NEUROLOGICAL: Awake and alert. Normal speech. Procedures stress test A/P Problem List: (1) Opiate abuse, continuous ICD Code: F11.10 - Opioid abuse, uncomplicated Status: Acute (2) COPD with acute exacerbation ICD Code: J44.1 - Chronic obstructive pulmonary disease with (acute) exacerbation (3) Chest pain ICD Code: R07.9 - Chest pain, unspecified (4) Pneumonia ICD Code: J18.9 - Pneumonia, unspecified organism (5) Hypoxia ICD Code: R09.02 - Hypoxemia Assessment and Plan 1. Elevated trop stress test showed no ischemia. s/p heparin gtt Cardiology evaluated the pt and has cleared him for d/c EF 60-65% No further cardiovascular workup, 2. COPD exacerbation/possible pneumonia DuoNeb's d/c IV steroids, I have transitioned him to po prednisone and continue taper Supplemental oxygen as needed Levaquin Pt is oxygen dependent w no payor source. CM assisting w d/c planning 3. Chronic pain/anxiety Continue home Percocet Continue home Klonopin DVT proph: heparin sq Discharge Planning difficult discharge Mary Best MD Oct 11, 2017 17:16
[2017-10-11] MEDS: LEVOFLOXACIN 750 MG PREMIX INJ 150 ML IV SCH (21:31)
[2017-10-11] MEDS ORDERED: clonazePAM 1 MG TAB PO SCH (22:00)
[2017-10-11] MEDS: clonazePAM 1 MG TAB PO PRN (22:42)
[2017-10-12] VITALS (10 sets, daily range): BP systolic 117–155; BP diastolic 66–88; PULSE 90–107; RESP 17–20; TEMP 97.4–97.9; O2SAT 92–96
[2017-10-12] MEDS: oxyCODONE/ACETAMINOPHEN 5 MG/325 MG TAB PO PRN ×6 (01:47→21:59)
[2017-10-12] MEDS: RESP: ALBUTEROL 2.5 MG/IPRATROPIUM 0.5 MG NEB (SCH) INH ×5 (02:19→20:48)
[2017-10-12] MEDS: HEPARIN SODIUM - SQ 10,000 UNITS/ML VIAL SQ SCH ×3 (05:26→21:09)
[2017-10-12] MEDS: TIOTROPIUM BROMIDE 18 MCG INH INH SCH (07:41)
[2017-10-12] MEDS: BUDESONIDE-FORMOTEROL 160/4.5 MCG INHALER INH SCH ×2 (07:41→21:09)
[2017-10-12] MEDS: clonazePAM 1 MG TAB PO PRN ×2 (07:42→16:17)
[2017-10-12] MEDS: ASPIRIN 81 MG CHEW TAB CHEW SCH (07:42)
[2017-10-12] MEDS: predniSONE 20 MG TAB PO SCH (07:42)
[2017-10-12] MEDS: SODIUM CHLORIDE 0.9% FLUSH 10 ML FLUSH IV FLUSH SCH ×2 (07:43→21:09)
--- NOTE | 2017-10-12 12:54 | HHI.PR ---
Subjective Remarks Nursing denies any deterioration since last night. Patient himself says that he gets very short of breath when he comes off of his nasal cannula and try to ambulate to the restroom. Otherwise at rest he is fine as long as he has a nasal cannula in place. Objective Vital Signs Date Time Temp Pulse Resp B/P (MAP) Pulse Ox O2 Delivery O2 Flow Rate FiO2 10/12/17 11:00 97.9 99 17 135/72 (93) 10/12/17 08:29 92 10/12/17 08:25 97.7 90 17 155/88 (110) 96 10/12/17 08:00 90 10/12/17 07:51 Nasal Cannula 3.00 Humidified 10/12/17 04:06 Nasal Cannula 3.00 10/12/17 04:00 97.7 95 20 117/66 (83) 95 10/12/17 04:00 90 10/12/17 00:00 Nasal Cannula 3.00 10/12/17 00:00 97.9 105 18 132/74 (93) 95 10/12/17 00:00 105 10/11/17 20:00 95 10/11/17 20:00 Nasal Cannula 3.00 10/11/17 20:00 97.9 97 20 140/74 (96) 93 10/11/17 16:00 97.8 95 19 122/65 (84) 96 10/11/17 16:00 89 10/11/17 15:33 91 Nasal Cannula 4.00 I/O 10/11/17 10/11/17 10/11/17 10/12/17 10/12/17 10/12/17 07:00 15:00 23:00 07:00 15:00 23:00 Intake Total 600 ml 240 ml Output Total 375 ml 550 ml Balance 225 ml -310 ml Intake Oral 600 ml 240 ml Output Urine Total 375 ml 550 ml # Voids 4 # Bowel Movements 0 0 Result Diagram: 10/10/17 0600 10/10/17 0600 Objective Remarks Clear lungs bilaterally, unlabored breathing, on nasal cannula A/P Assessment and Plan 1. COPD exacerbation/possible pneumonia DuoNeb's po prednisone and continue taper Supplemental oxygen as needed Levaquin Pt is oxygen dependent w no payor source. CM assisting w d/c planning 2. Chronic pain/anxiety Continue home Percocet Continue home Klonopin DVT proph: heparin sq Discharge Planning difficult discharge pending O2 supply Niko Lundy MD Oct 12, 2017 12:54
[2017-10-12] MEDS ORDERED: MAGNESIUM HYDROXIDE SUSP 30 ML CUP PO ONE (20:15)
[2017-10-12] MEDS: DOCUSATE SODIUM 100 MG CAP PO SCH (21:00)
[2017-10-12] MEDS: LEVOFLOXACIN 750 MG PREMIX INJ 150 ML IV SCH (21:09)
[2017-10-13] VITALS (9 sets, daily range): BP systolic 117–132; BP diastolic 70–81; PULSE 87–114; RESP 16–20; TEMP 97.2–98; O2SAT 91–95
[2017-10-13] MEDS: clonazePAM 1 MG TAB PO PRN ×3 (00:03→16:36)
[2017-10-13] MEDS: oxyCODONE/ACETAMINOPHEN 5 MG/325 MG TAB PO PRN ×5 (02:54→21:01)
[2017-10-13] MEDS: HEPARIN SODIUM - SQ 10,000 UNITS/ML VIAL SQ SCH ×3 (06:30→21:02)
[2017-10-13] MEDS: SODIUM CHLORIDE 0.9% FLUSH 10 ML FLUSH IV FLUSH SCH ×2 (08:29→21:03)
[2017-10-13] MEDS: TIOTROPIUM BROMIDE 18 MCG INH INH SCH (08:29)
[2017-10-13] MEDS: BUDESONIDE-FORMOTEROL 160/4.5 MCG INHALER INH SCH ×2 (08:29→21:02)
[2017-10-13] MEDS: predniSONE 20 MG TAB PO SCH (08:30)
[2017-10-13] MEDS: DOCUSATE SODIUM 100 MG CAP PO SCH ×2 (08:30→21:01)
[2017-10-13] MEDS: ASPIRIN 81 MG CHEW TAB CHEW SCH (08:30)
--- NOTE | 2017-10-13 10:13 | HHI.PR ---
Subjective Remarks Nursing denies any deterioration since last night. Patient himself says that his shortness of breath is slightly better than yesterday. There is none at rest but still there on exertion. Objective Vital Signs Date Time Temp Pulse Resp B/P (MAP) Pulse Ox O2 Delivery O2 Flow Rate FiO2 10/13/17 04:00 97.4 96 16 123/74 (90) 93 10/13/17 04:00 Nasal Cannula 3.00 10/13/17 04:00 98 10/13/17 00:14 93 Nasal Cannula 4.00 10/13/17 00:00 Nasal Cannula 3.00 10/13/17 00:00 97.8 105 16 132/70 (90) 94 10/13/17 00:00 103 10/12/17 20:48 95 Nasal Cannula 3.00 10/12/17 20:00 107 10/12/17 20:00 97.4 104 19 150/81 (104) 94 10/12/17 20:00 Nasal Cannula 3.00 10/12/17 16:05 97.6 93 17 129/86 (100) 96 10/12/17 16:00 104 10/12/17 11:00 97.9 99 17 135/72 (93) I/O 10/12/17 10/12/17 10/12/17 10/13/17 10/13/17 10/13/17 07:00 15:00 23:00 07:00 15:00 23:00 Intake Total 240 ml 1440 ml 2000 ml Output Total 550 ml 500 ml 700 ml Balance -310 ml 940 ml 1300 ml Intake Oral 240 ml 1440 ml 2000 ml Output Urine Total 550 ml 500 ml 700 ml # Voids 2 # Bowel Movements 0 0 Result Diagram: 10/10/17 0600 10/10/17 0600 Objective Remarks Clear lungs bilaterally, unlabored breathing, on nasal cannula A/P Assessment and Plan 1. chronic hypoxic resp failure 2/2 COPD - O2 4 L now at baseline 2. COPD exacerbation improving DuoNeb's po prednisone and continue taper Levaquin - ordered procalcitonin, if neg, can stop abx Pt is oxygen dependent w no payor source. CM assisting w d/c planning 3. Chronic pain/anxiety Continue home Percocet Continue home Klonopin DVT proph: heparin sq Discharge Planning pending arrangement of outpt O2 supply Niko Lundy MD Oct 13, 2017 10:13
[2017-10-13] MEDS: LEVOFLOXACIN 750 MG PREMIX INJ 150 ML IV SCH (21:03)
[2017-10-14] VITALS (8 sets, daily range): BP systolic 99–127; BP diastolic 59–88; PULSE 64–109; RESP 16–20; TEMP 97.4–98.2; O2SAT 89–97
[2017-10-14] MEDS: oxyCODONE/ACETAMINOPHEN 5 MG/325 MG TAB PO PRN ×6 (01:00→22:15)
[2017-10-14] MEDS: clonazePAM 1 MG TAB PO PRN ×3 (01:01→18:29)
[2017-10-14] MEDS: HEPARIN SODIUM - SQ 10,000 UNITS/ML VIAL SQ SCH ×3 (05:42→21:29)
[2017-10-14] MEDS: predniSONE 20 MG TAB PO SCH (08:24)
[2017-10-14] MEDS: DOCUSATE SODIUM 100 MG CAP PO SCH ×2 (08:24→21:29)
[2017-10-14] MEDS: ASPIRIN 81 MG CHEW TAB CHEW SCH (08:24)
[2017-10-14] MEDS: SODIUM CHLORIDE 0.9% FLUSH 10 ML FLUSH IV FLUSH SCH ×2 (08:25→21:29)
[2017-10-14] MEDS: TIOTROPIUM BROMIDE 18 MCG INH INH SCH (08:25)
[2017-10-14] MEDS: BUDESONIDE-FORMOTEROL 160/4.5 MCG INHALER INH SCH ×2 (08:25→21:29)
--- NOTE | 2017-10-14 12:07 | HHI.PR ---
Subjective Remarks Nursing denies any deterioration since last night. Patient himself says he has been able to get up and go to the restroom with better endurance today. He reiterates that he is homeless. Objective Vital Signs Date Time Temp Pulse Resp B/P (MAP) Pulse Ox O2 Delivery O2 Flow Rate FiO2 10/14/17 10:42 Nasal Cannula 3.00 10/14/17 08:00 91 10/14/17 08:00 98.0 98 20 121/85 (97) 94 10/14/17 04:00 98.2 82 18 99/59 (72) 97 10/14/17 04:00 92 10/14/17 00:00 97.6 98 18 116/82 (93) 91 10/13/17 23:45 99 10/13/17 22:35 Nasal Cannula 3.00 10/13/17 20:00 Nasal Cannula 3.00 10/13/17 20:00 97.3 91 18 117/77 (90) 93 10/13/17 19:47 87 10/13/17 16:00 97 10/13/17 16:00 98.0 97 20 120/70 (87) 95 10/13/17 14:20 4.00 I/O 10/13/17 10/13/17 10/13/17 10/14/17 10/14/17 10/14/17 06:59 14:59 22:59 06:59 14:59 22:59 Intake Total 2000 ml 720 ml Output Total 700 ml Balance 1300 ml 720 ml Intake Oral 2000 ml 720 ml Output Urine Total 700 ml # Voids 3 3 # Bowel Movements 1 Result Diagram: 10/10/17 0600 10/10/17 0600 Objective Remarks Clear lungs bilaterally, unlabored breathing, on nasal cannula Sitting up in bed, pleasant mood A/P Assessment and Plan 1. chronic hypoxic resp failure 2/2 COPD - O2 4 L at baseline 2. COPD exacerbation improving DuoNeb's po prednisone and continue taper Stopping Levaquin as pro-calcitonin is within normal limits Pt is oxygen dependent w no payor source. CM assisting w d/c planning 3. Chronic pain/anxiety Continue home Percocet Continue home Klonopin DVT proph: heparin sq Discharge Planning pending arrangement of outpt O2 supply Niko Lundy MD Oct 14, 2017 12:07
[2017-10-15] VITALS (10 sets, daily range): BP systolic 102–134; BP diastolic 57–74; PULSE 67–102; RESP 18–24; TEMP 97.4–97.9; O2SAT 92–95
[2017-10-15] MEDS: clonazePAM 1 MG TAB PO PRN ×3 (02:48→20:19)
[2017-10-15] MEDS: oxyCODONE/ACETAMINOPHEN 5 MG/325 MG TAB PO PRN ×5 (02:49→20:20)
[2017-10-15] MEDS: HEPARIN SODIUM - SQ 10,000 UNITS/ML VIAL SQ SCH ×3 (03:32→20:20)
[2017-10-15] MEDS: ASPIRIN 81 MG CHEW TAB CHEW SCH (07:42)
[2017-10-15] MEDS: predniSONE 20 MG TAB PO SCH (07:43)
[2017-10-15] MEDS: DOCUSATE SODIUM 100 MG CAP PO SCH ×2 (07:43→20:18)
[2017-10-15] MEDS: SODIUM CHLORIDE 0.9% FLUSH 10 ML FLUSH IV FLUSH SCH ×2 (07:43→20:20)
[2017-10-15] MEDS: BUDESONIDE-FORMOTEROL 160/4.5 MCG INHALER INH SCH ×2 (07:44→20:19)
[2017-10-15] MEDS: TIOTROPIUM BROMIDE 18 MCG INH INH SCH (07:44)
--- NOTE | 2017-10-15 11:51 | HHI.PR ---
Subjective Remarks Nursing denies any deterioration since last night. Patient has no new complaints but he would like for his Klonopin to be increased back to his baseline at home. Objective Vital Signs Date Time Temp Pulse Resp B/P (MAP) Pulse Ox O2 Delivery O2 Flow Rate FiO2 10/15/17 08:53 97.9 67 18 102/74 (83) 92 10/15/17 08:49 20 10/15/17 08:00 Nasal Cannula 3.00 10/15/17 04:06 82 10/15/17 03:19 97.9 94 18 112/69 (83) 95 10/15/17 02:47 Nasal Cannula 3.00 10/15/17 00:04 83 10/14/17 23:46 Room Air 10/14/17 23:46 97.5 86 16 106/64 (78) 89 10/14/17 23:46 92 Nasal Cannula 3.00 10/14/17 21:12 Nasal Cannula 3.00 10/14/17 20:12 Room Air 10/14/17 20:09 97.6 95 18 117/73 (88) 91 10/14/17 19:45 108 10/14/17 16:00 98.0 109 20 125/88 (100) 96 10/14/17 16:00 98 10/14/17 12:00 90 10/14/17 12:00 97.4 101 20 127/86 (100) 95 I/O 10/14/17 10/14/17 10/14/17 10/15/17 10/15/17 10/15/17 07:00 15:00 23:00 07:00 15:00 23:00 Intake Total 720 ml Balance 720 ml Intake Oral 720 ml # Voids 3 3 # Bowel Movements 1 Objective Remarks Clear lungs bilaterally, unlabored breathing, on nasal cannula Sitting up in bed, pleasant mood A/P Assessment and Plan 1. chronic hypoxic resp failure 2/2 COPD - O2 4 L at baseline 2. COPD exacerbation improving DuoNeb's tapering prednisone 3. Chronic pain/anxiety Continue home Percocet Continue klonopin, starting cymbalta DVT proph: heparin sq Discharge Planning pending arrangement of outpt O2 supply Niko Lundy MD Oct 15, 2017 11:51
[2017-10-15] MEDS: DULoxetine HCl DR 20 MG CAP PO SCH (15:19)
[2017-10-16] VITALS (11 sets, daily range): BP systolic 104–130; BP diastolic 56–77; PULSE 74–120; RESP 17–20; TEMP 97.3–98.2; O2SAT 92–97
[2017-10-16] MEDS: oxyCODONE/ACETAMINOPHEN 5 MG/325 MG TAB PO PRN ×5 (00:22→16:34)
[2017-10-16] MEDS: HEPARIN SODIUM - SQ 10,000 UNITS/ML VIAL SQ SCH ×3 (04:23→20:39)
[2017-10-16] MEDS: clonazePAM 1 MG TAB PO PRN ×3 (04:23→20:38)
[2017-10-16] MEDS: TIOTROPIUM BROMIDE 18 MCG INH INH SCH (08:28)
[2017-10-16] MEDS: ASPIRIN 81 MG CHEW TAB CHEW SCH (08:28)
[2017-10-16] MEDS: SODIUM CHLORIDE 0.9% FLUSH 10 ML FLUSH IV FLUSH SCH ×2 (08:28→20:39)
[2017-10-16] MEDS: BUDESONIDE-FORMOTEROL 160/4.5 MCG INHALER INH SCH ×2 (08:28→20:39)
[2017-10-16] MEDS: DOCUSATE SODIUM 100 MG CAP PO SCH ×2 (08:28→20:39)
[2017-10-16] MEDS: DULoxetine HCl DR 20 MG CAP PO SCH (08:29)
[2017-10-16] MEDS: predniSONE 20 MG TAB PO SCH (08:29)
--- NOTE | 2017-10-16 16:39 | HHI.PR ---
Subjective Remarks Nursing denies any deterioration since last night. He states that his home oxycodone is also dosed differently. He is quite anxious about not being able to get out of here because he does not anticipate a timely departure due to having no home address any time in the near future so that he can get home oxygen arranged for by case management. States that the [facility] is "not working". Objective Vital Signs Date Time Temp Pulse Resp B/P (MAP) Pulse Ox O2 Delivery O2 Flow Rate FiO2 10/16/17 16:00 98.2 96 20 104/62 (76) 92 10/16/17 12:00 97.8 95 18 130/73 (92) 96 10/16/17 09:35 97 Nasal Cannula 3.00 10/16/17 08:33 Nasal Cannula 3.00 Humidified 10/16/17 08:00 97.3 100 18 114/77 (89) 94 10/16/17 08:00 74 10/16/17 04:37 78 10/16/17 04:00 98.2 84 18 123/74 (90) 96 10/16/17 00:11 94 10/16/17 00:00 98.2 97 18 122/67 (85) 92 10/15/17 20:43 Nasal Cannula 3.00 10/15/17 20:00 97.8 102 24 131/72 (91) 95 10/15/17 19:55 101 10/15/17 19:30 Room Air 10/15/17 17:18 20 10/15/17 16:38 97.4 95 18 117/65 (82) 94 I/O 10/15/17 10/15/17 10/15/17 10/16/17 10/16/17 10/16/17 07:00 15:00 23:00 07:00 15:00 23:00 Intake Total 980 ml Output Total 350 ml Balance 980 ml -350 ml Intake Oral 980 ml Output Urine Total 350 ml # Voids 12 # Bowel Movements 2 0 Objective Remarks Clear lungs bilaterally, unlabored breathing, on nasal cannula Sitting up in bed, appears stressed but consolable and conversive A/P Assessment and Plan 1. chronic hypoxic resp failure 2/2 COPD - O2 4 L at baseline 2. COPD exacerbation improving DuoNeb's Gradual taper of p.o. prednisone, currently at 40 mg, transition to 30 mg in about 4 days time is still inpatient. 3. Chronic pain/anxiety Continue home Percocet Continue klonopin, continue Cymbalta Nursing will verify home regimen so that we can modify his home pain and anxiety medications DVT proph: heparin sq Discharge Planning Case management still working on pending arrangement of outpt O2 supply Niko Lundy MD Oct 16, 2017 16:39
[2017-10-17] VITALS (8 sets, daily range): BP systolic 101–123; BP diastolic 57–87; PULSE 61–117; RESP 17–18; TEMP 97.2–97.9; O2SAT 92–98
[2017-10-17] MEDS: clonazePAM 1 MG TAB PO PRN ×3 (04:47→21:04)
[2017-10-17] MEDS: HEPARIN SODIUM - SQ 10,000 UNITS/ML VIAL SQ SCH ×3 (04:47→21:05)
[2017-10-17] MEDS: DOCUSATE SODIUM 100 MG CAP PO SCH ×2 (08:40→21:00)
[2017-10-17] MEDS: ASPIRIN 81 MG CHEW TAB CHEW SCH (09:11)
[2017-10-17] MEDS: predniSONE 20 MG TAB PO SCH (09:12)
[2017-10-17] MEDS: TIOTROPIUM BROMIDE 18 MCG INH INH SCH (09:12)
[2017-10-17] MEDS: BUDESONIDE-FORMOTEROL 160/4.5 MCG INHALER INH SCH ×2 (09:12→21:05)
[2017-10-17] MEDS: SODIUM CHLORIDE 0.9% FLUSH 10 ML FLUSH IV FLUSH SCH ×2 (09:12→21:05)
[2017-10-17] MEDS: DULoxetine HCl DR 20 MG CAP PO SCH (09:12)
--- NOTE | 2017-10-17 14:17 | HHI.PR ---
Subjective Remarks Nursing denies any deterioration since last night. Patient reports that he has chronic diffuse generalized chest pain from an injury that he had in the past, says he takes his oxycodone every 4 hours. Objective Vital Signs Date Time Temp Pulse Resp B/P (MAP) Pulse Ox O2 Delivery O2 Flow Rate FiO2 10/17/17 12:00 97.5 92 18 101/80 (87) 92 10/17/17 12:00 70 10/17/17 08:00 Nasal Cannula 3.00 10/17/17 08:00 97.2 89 18 123/87 (99) 98 10/17/17 08:00 95 10/17/17 04:19 97.8 83 17 102/57 (72) 94 10/17/17 03:55 73 10/17/17 00:36 97.8 89 17 110/57 (74) 94 10/16/17 23:54 83 10/16/17 21:34 Nasal Cannula 3.00 10/16/17 21:01 98.0 98 17 121/56 (77) 94 10/16/17 20:30 Room Air 10/16/17 20:00 93 10/16/17 16:00 98.2 96 20 104/62 (76) 92 10/16/17 16:00 120 I/O 10/16/17 10/16/17 10/16/17 10/17/17 10/17/17 10/17/17 07:00 15:00 23:00 07:00 15:00 23:00 Intake Total 480 ml 240 ml Output Total 350 ml 675 ml 800 ml Balance -350 ml -195 ml -560 ml Intake Oral 480 ml 240 ml Output Urine Total 350 ml 675 ml 800 ml # Bowel Movements 0 Objective Remarks Clear lungs bilaterally, unlabored breathing, on nasal cannula Is able to get up off of the bed and walk on over to his belongings with ease A/P Assessment and Plan 1. chronic hypoxic resp failure 2/2 COPD - O2 4 L at baseline 2. COPD exacerbation improving DuoNeb's Gradual taper of p.o. prednisone, currently at 40 mg, transition to 30 mg in about 3 days time is still inpatient. 3. Chronic pain/anxiety Continue home Percocet Continue home Klonopin continue Cymbalta DVT proph: heparin sq Discharge Planning Case management still working on pending arrangement of outpt O2 supply. Niko Lundy MD Oct 17, 2017 14:17
[2017-10-18] VITALS (9 sets, daily range): BP systolic 105–131; BP diastolic 62–71; PULSE 76–120; RESP 18–22; TEMP 97.2–97.9; O2SAT 93–98
[2017-10-18] MEDS: clonazePAM 1 MG TAB PO PRN ×3 (05:59→21:53)
[2017-10-18] MEDS: HEPARIN SODIUM - SQ 10,000 UNITS/ML VIAL SQ SCH ×3 (06:00→19:58)
[2017-10-18] MEDS: DOCUSATE SODIUM 100 MG CAP PO SCH ×2 (09:00→19:59)
[2017-10-18] MEDS: predniSONE 20 MG TAB PO SCH (09:00)
[2017-10-18] MEDS: DULoxetine HCl DR 20 MG CAP PO SCH (09:16)
[2017-10-18] MEDS: ASPIRIN 81 MG CHEW TAB CHEW SCH (09:16)
[2017-10-18] MEDS: SODIUM CHLORIDE 0.9% FLUSH 10 ML FLUSH IV FLUSH SCH ×2 (09:17→19:59)
[2017-10-18] MEDS: BUDESONIDE-FORMOTEROL 160/4.5 MCG INHALER INH SCH ×2 (09:18→19:59)
[2017-10-18] MEDS: TIOTROPIUM BROMIDE 18 MCG INH INH SCH (09:18)
--- NOTE | 2017-10-18 16:23 | HHI.PR ---
Subjective Remarks Nursing denies any deterioration since last night. Has no new complaints for me. Objective Vital Signs Date Time Temp Pulse Resp B/P (MAP) Pulse Ox O2 Delivery O2 Flow Rate FiO2 10/18/17 12:00 97.6 99 18 131/67 (88) 93 10/18/17 12:00 101 10/18/17 10:33 98 Nasal Cannula 3.00 10/18/17 08:00 97.2 97 18 117/67 (84) 94 10/18/17 08:00 99 10/18/17 07:00 Nasal Cannula 3.00 10/18/17 04:00 97.2 80 22 108/65 (79) 96 10/18/17 04:00 76 10/18/17 00:00 Nasal Cannula 3.00 10/18/17 00:00 92 10/18/17 00:00 97.9 94 22 105/66 (79) 95 10/17/17 20:32 95 10/17/17 20:06 97.6 105 18 101/57 (72) 96 10/17/17 20:00 Nasal Cannula 3.00 I/O 10/17/17 10/17/17 10/17/17 10/18/17 10/18/17 10/18/17 07:00 15:00 23:00 07:00 15:00 23:00 Intake Total 240 ml 720 ml 680 ml Output Total 800 ml Balance -560 ml 720 ml 680 ml Intake Oral 240 ml 720 ml 680 ml Output Urine Total 800 ml # Voids 4 4 # Bowel Movements 1 Objective Remarks Clear lungs bilaterally, unlabored breathing, on nasal cannula A/P Assessment and Plan 1. chronic hypoxic resp failure 2/2 COPD - O2 4 L at baseline 2. COPD exacerbation improving DuoNeb's Gradual taper of p.o. prednisone, currently at 40 mg, transition to 30 mg in about 2 days time while still inpatient. 3. Chronic pain/anxiety Continue home Percocet Continue home Klonopin continue Cymbalta DVT proph: heparin sq Discharge Planning Case management still working on pending arrangement of outpt O2 supply. Ordered PT eval for possible halfway/SNF placement. Niko Lundy MD Oct 18, 2017 16:23
[2017-10-19] VITALS (7 sets, daily range): BP systolic 108–135; BP diastolic 64–79; PULSE 77–100; RESP 18–20; TEMP 97.3–97.9; O2SAT 92–96
[2017-10-19] MEDS: HEPARIN SODIUM - SQ 10,000 UNITS/ML VIAL SQ SCH ×2 (04:04→13:13)
[2017-10-19] MEDS: clonazePAM 1 MG TAB PO PRN ×2 (06:13→13:10)
[2017-10-19] MEDS: predniSONE 20 MG TAB PO SCH (08:50)
[2017-10-19] MEDS: DOCUSATE SODIUM 100 MG CAP PO SCH (08:50)
[2017-10-19] MEDS: DULoxetine HCl DR 20 MG CAP PO SCH (08:50)
[2017-10-19] MEDS: ASPIRIN 81 MG CHEW TAB CHEW SCH (08:50)
[2017-10-19] MEDS: SODIUM CHLORIDE 0.9% FLUSH 10 ML FLUSH IV FLUSH SCH (08:52)
[2017-10-19] MEDS: TIOTROPIUM BROMIDE 18 MCG INH INH SCH (08:54)
[2017-10-19] MEDS: BUDESONIDE-FORMOTEROL 160/4.5 MCG INHALER INH SCH (08:54)
[2017-10-19] MEDS ORDERED: DULO20 PO (11:57)
[2017-10-19] MEDS ORDERED: CLON1 PO (11:57)
[2017-10-19] MEDS ORDERED: OXYC-395 PO (11:57)
[2017-10-19] MEDS ORDERED: PRED10 PO (11:57)
--- NOTE | 2017-10-19 19:04 | HHI.DS ---
Discharge Summary Admission Date Oct 08, 2017 at 20:14 Discharge Date: Oct 19, 2017 Admitting Diagnosis NSTEMI, COPD exacerbation (1) Opiate abuse, continuous ICD Code: F11.10 - Opioid abuse, uncomplicated Status: Acute (2) COPD with acute exacerbation ICD Code: J44.1 - Chronic obstructive pulmonary disease with (acute) exacerbation (3) Chest pain ICD Code: R07.9 - Chest pain, unspecified (4) Pneumonia ICD Code: J18.9 - Pneumonia, unspecified organism (5) Hypoxia ICD Code: R09.02 - Hypoxemia Procedures stress test Brief History - From Admission 57-year-old male with a past medical history significant for COPD, chronic pain and anxiety presents the emergency department complaining of 18 hours of shortness of breath. The patient reports that he is intermittently on 4 L of oxygen by nasal cannula at home. He reports for the past 2 days he has been without his oxygen. He also endorses chest pain that has been going on for the previous day which she describes as sharp and substernal. He also endorses intermittent bouts of diaphoresis. He complains of a increasing nonproductive cough. He denies any fever/chills. No nausea/vomiting/diarrhea. No weakness/ dizziness. No lateralizing signs/symptoms. PE at Discharge Clear breath sounds bilaterally, unlabored breathing Hospital Course Patient was admitted, started on IV steroids duo nebs and oxygen as well as antibiotics. He was eventually transitioned down to p.o. steroids. Patient was initially being evaluated for sniff however he showed very good ambulation without any difficulty and eventually was saturating well on room air. Antibiotics were discontinued with pro-calcitonin is been negative. Patient has been maximal benefit from hospitalization and is clinically stable for discharge. Pt Condition on Discharge: Stable Discharge Disposition: Disch w/ Home Health Serv Discharge Instructions DIET: Follow Instructions for: Heart Healthy Diet Activities you can perform: Regular-No Restrictions Follow up Referrals: PCP Follow-up - 2-3 Days PCP Follow-up with [facility] - 1 Week New Medications: Oxygen (O2) (Oxygen (O2)) Device LITER ASHLIE.CANULA CONTINUOUS for Prevent Hypoxemia, #2 Oxygen Concentrator Portable Gaseous 2 L/min via Nasal Canula Continuous For 99 months Prednisone (Prednisone) 10 Mg Tab 10 MG PO DIRECTED for bronchitis, #30 TAB 0 Refills take 30 mg for 3 days, then 20 mg for 3 days, then 10 mg daily afterwards Clonazepam (Klonopin) 1 Mg Tab 2 MG PO TID PRN for anxiety, #[address] (Cymbalta DR) 20 Mg Capdr 20 MG PO DAILY for Anxiety and/or Insomnia, #30 CAP Oxycodone (Oxycodone) 10 Mg Tab 10 MG PO Q4HR PRN for pain, #84 TAB Continued Medications: Albuterol 18 GM Inh (Ventolin Hfa 18 GM Inh) 90 Mcg/Act Aer 1 PUFF INH Q4H PRN for SHORTNESS OF BREATH for 30 Days, #20 INHALER 0 Refills ( This prescription has been renewed) Fluticasone-Salmeterol Inh (Advair Diskus Inh) 250-50 Mcg/Blist Aer 1 PUFF INH BID, INHALER 0 Refills Rinse mouth after use. Tiotropium Inh (Spiriva Handihaler) 18 Mcg Cap 18 MCG INH DAILY for COPD for 30 Days, #30 CAP 0 Refills (This prescription has been renewed) 1 capsule = 18 mcg Niko Lundy MD Oct 19, 2017 19:04
== END 2017-10-19 16:40 | disposition home or self-care (01) | DRG 190 ==
LOC: NEPE 16:28 → NEDA 20:14 → NEDH 10-09 01:08 → N04B 10-09 13:16 → UNDODISIN 10-10 14:42
PROVIDERS: ADMIT Hospitalist; ATTEND Hospitalist
DX: J44.1 Chronic obstructive pulmonary disease with (acute) exacerbation (principal); J18.9 Pneumonia, unspecified organism; J96.11 Chronic respiratory failure with hypoxia; J44.0 Chronic obstructive pulmonary disease with (acute) lower respiratory infection; R00.0 Tachycardia, unspecified; F41.9 Anxiety disorder, unspecified; G89.29 Other chronic pain; M54.9 Dorsalgia, unspecified; F14.90 Cocaine use, unspecified, uncomplicated; F11.10 Opioid abuse, uncomplicated; F17.210 Nicotine dependence, cigarettes, uncomplicated; Z99.81 Dependence on supplemental oxygen; Z59.0 Homelessness
CPT/HCPCS: 70450; 71045; 71275; 78452; 80048; 80053; 80307; 81001; 82550; 82552; 83735; 83880; 84145; 84484; 85025; 85610; 85730; 93005; 93017; 93306; 94618; 94640; 94664; 96374; A9502; J1644; J1956; J2785; J2930; J7030; J7512; J7613; Q9967